=== PATIENT | male | born 1980 | race Caucasian/White ===

== ENCOUNTER 2019-07-30 15:28 | Inpatient (IN) ==
[2019-07-30] MEDS ORDERED: cefTRIAXone 1,000 MG in Water for inj. (sterile) 10 ML IVP ONE (18:20)
[2019-07-30 19:05] LABS: Basophils % 0.4 %; Eosinophils # 0.4 K/mcL (0.0-0.6); Eosinophils % 5.8 %; Hematocrit 40.8 % (37.5-50.1); Hemoglobin 14.5 g/dL (12.9-16.9); Immature Granulocytes % 0.4 % (0-4); Lymphocytes # 2.4 K/mcL (0.6-4.6); Lymphocytes % 34.3 %; Mean Corpuscular HGB Conc 35.5 g/dL (31.6-35.5); Mean Corpuscular Hemoglobin 30.7 pg (28.0-33.3); Mean Corpuscular Volume 86.4 fL (83.0-100.0); Mean Platelet Volume 10.2 fL (9.4-12.4); Monocytes # 0.6 K/mcL (0.0-1.3); Monocytes % 8.8 %; Neutrophils # 3.5 K/mcL (1.6-8.9); Platelet Count 267 K/mcL (140-400); Red Blood Count 4.72 M/mcL (4.19-5.50); Red Cell Distribution Width 13.3 % (11.5-14.5); Segmented Neutrophils % 50.3 %; White Blood Count 6.9 K/mcL (4.3-11.1)
[2019-07-30 19:10] LABS: BUN/Creatinine Ratio 18 (6-26); Blood Urea Nitrogen 17 mg/dL (6-20); Calcium 8.9 mg/dL (8.6-10.3); Carbon Dioxide 27 mEq/L (23-29); Chloride 105 mEq/L (98-107); Glucose 87 mg/dL (70-105); Osmolality,Calculated 285 (280-300); Potassium 4.3 mEq/L (3.5-5.1); Sodium 137 mEq/L (136-145); eGFR For African Americans > 60 (> 60); eGFR For Non-African Americans > 60 (> 60)
--- NOTE | 2019-07-30 19:55 | Emergency Department Note ---
Disposition Clinical Impression: Wound of left leg Qualifiers: Encounter type: initial encounter Qualified Code(s): S81.802A - Unspecified open wound, left lower leg, initial encounter Disposition: Admitted As Inpatient Time of Disposition: 20:14 Wound/Laceration HPI - General Chief Complaint: ED Wound/Laceration Stated Complaint: "infection in left leg" Time Seen by Provider: 07/30/19 18:02 Source: patient Mode of arrival: ambulatory Limitations: no limitations Nursing Notes Reviewed: Yes Vital Signs Reviewed: Yes - History of Present Illness HPI Narrative: 39M with no significant PMHx presents to the emergency department from wound care. Patient states that he cut his left leg several weeks ago and had it sutured the same day. The wound ended up getting infected and he has been seen wound care for it ever since. He had a wound VAC ordered and is scheduled to have a placed today at wound care but they sent him here as they said his wound looked like it was getting worse. Patient states he has been taking outpatient antibiotics and it looks the same to him. Patient denies fever, chills, chest pain, shortness breath, abdominal pain, nausea and vomiting. - Related Data Home Medications Medication Instructions Recorded Confirmed Ibuprofen 800 mg PO Q8H PRN 07/12/19 07/30/19 Previous Rx's Medication Instructions Recorded Acetaminophen [Tylenol] 500 mg PO Q6HR #30 tablet 07/16/19 Amoxicillin/Clavulanate [Augmentin] 875 mg PO BIDWM #20 tablet 07/16/19 Allergies Allergy/AdvReac Type Severity Reaction Status Date / Time No Known Allergies Allergy Verified 07/30/19 15:43 All systems ED: reviewed and negative except as stated. Review of Systems: As Per HPI Constitutional: Denies: fever, chills, weakness Cardiovascular: Denies: chest pain, palpitations, dyspnea on exertion Respiratory: Denies: cough, dyspnea, wheezes Gastrointestinal: Denies: abdominal pain, nausea, vomiting, diarrhea Musculoskeletal: Reports: other (left leg infection). Denies: back pain, neck pain Neurological: Denies: headache Endocrine: Denies: fatigue Past Medical History - Past Medical History Attestation: Yes The following information was validated with the patient. Source: patient Medical history: Reports: no medical history Psychiatric history: Reports: anxiety, ADHD, depression - Social History Smoking Status: Current every day smoker Smokeless Tobacco Status: No Alcohol use: Reports: none Drug use: Reports: none Physical Exam - General Limitations: no limitations General appearance: alert, in no apparent distress - Head Head exam: atraumatic, normocephalic - Eye Eye exam: Present: normal appearance, EOMI - Chest Chest inspection: Present: normal inspection. Absent: tenderness, rash - Respiratory Respiratory exam: Present: normal lung sounds bilaterally. Absent: wheezes - Cardiovascular Cardiovascular exam: Present: regular rate, normal rhythm - Abdominal Exam Abdominal exam: Present: soft, Non-Tender. Absent: distention, guarding, rebound, rigidity - Extremities Exam Extremities exam: Present: tenderness, other (5 x 7 cm wound on the left lower show any with surrounding cellulitis. Secondary circular wound distal to this wound with serous drainage.) - Neurological Exam Neurological exam: Present: alert, oriented X3 - Psychiatric Psychiatric exam: Present: normal affect, normal mood - Skin Skin exam: Present: warm, dry Course Vital Signs Temperature 98.1 F 07/30/19 15:40 Pulse Rate 87 07/30/19 15:40 Respiratory Rate 16 07/30/19 15:40 Blood Pressure 143/92 07/30/19 15:40 O2 Sat by Pulse Oximetry 98 07/30/19 15:40 Temperature 98.1 F 07/30/19 15:40 Pulse Rate 87 07/30/19 15:40 Respiratory Rate 16 07/30/19 15:40 Blood Pressure 143/92 07/30/19 15:40 O2 Sat by Pulse Oximetry 98 07/30/19 15:40 Oxygen Delivery Oxygen Delivery Room Air Wound/Laceration - [facility] Narrative Medical decision making narrative: Patient presents from wound care with concerns for worsening infection overall receiving outpatient antibiotics and seen wound care. We will obtain basic labs and a culture from the wound as well as blood cultures and plan on admission for IV antibiotics and possible debridement of the wound. 1919 - point of care ultrasound was obtained of the left lower extremity which showed a superficial collection of fluid in between the 2 wounds. 1956 - patient's labs are back and within normal limits. Rocephin has been started. Hospitalist been paged for admission. 2013 - patient has been accepted to the hospital by Dr. Brigida panchal the requests of a CRP, procalcitonin and XR of the LLE. - Medical Records Medical records reviewed: Yes I reviewed the patient's medical records. - Lab Data Lab results reviewed: Yes I reviewed the patient's lab results. Result diagrams: 07/30/19 18:36 07/30/19 18:36 Lab Results 07/30/19 07/30/19 07/30/19 Range/Units 18:36 18:36 18:36 WBC 6.9 (4.3-11.1) K/mcL RBC 4.72 (4.19-5.50) M/mcL Hgb 14.5 (12.9-16.9) g/dL Hct 40.8 (37.5-50.1) % MCV 86.4 (83.0-100.0) fL MCH 30.7 (28.0-33.3) pg MCHC 35.5 (31.6-35.5) g/dL RDW 13.3 (11.5-14.5) % Plt Count 267 (140-400) K/mcL MPV 10.2 (9.4-12.4) fL Immature Gran % 0.4 (0-4) % Seg Neutrophils % 50.3 % Lymphocytes % 34.3 % Monocytes % 8.8 % Eosinophils % 5.8 % Basophils % 0.4 % Neutrophils # 3.5 (1.6-8.9) K/mcL Lymphocytes # 2.4 (0.6-4.6) K/mcL Monocytes # 0.6 (0.0-1.3) K/mcL Eosinophils # 0.4 (0.0-0.6) K/mcL Basophils # 0.0 (0.0-0.2) K/mcL ESR 13 H (0-10) mm/hr Sodium 137 (136-145) mEq/L Potassium 4.3 (3.5-5.1) mEq/L Chloride 105 (98-107) mEq/L Carbon Dioxide 27 (23-29) mEq/L BUN 17 (6-20) mg/dL Creatinine 0.95 (0.70-1.30) mg/dL Est GFR ( Amer) > 60 (> 60) Est GFR (Non-Af Amer) > 60 (> 60) BUN/Creatinine Ratio 18 (6-26) Glucose 87 (70-105) mg/dL Calculated Osmolality 285 (280-300) Calcium 8.9 (8.6-10.3) mg/dL Attestation Statement - Attestation Attestation: I have seen this patient with the resident physician, I have personally evaluated this patient. I had reviewed the chart and document dictation by the resident physician and aM in agreement with the information documented by the resident physician. Please see documentation by the resident physician for complete chart including past medical history, family medical history, review of systems, current history and physical and laboratory and imaging studies. I was present for all procedures, provided direct supervision for all procedures, was present for the entirety of all procedures and provided direct guidance during the procedures. Please see documentation by the resident physician for any procedures performed. I have reviewed all interpretations of EKGs, and reviewed all EKGs performed on patient's as well. I have also reviewed reports of imaging as provided by radiology. Patient was sent to the emergency department for further evaluation of worsening wound infection. Patient reports that he was hospitalized previously for this, he had had a laceration, as an outpatient that was repaired and then became infected requiring wound management, and IV antibiotics, he has been on oral antibiotics as an outpatient, has been following at the wound clinic and went to get a wound VAC put on today, however did not like the appearance of his wound and sent him to the emergency department. On exam he has definitive evidence for cellulitis of the anterior tibial region, significant wound dehiscence, of the upper portion of his prior laceration, with still some sutures in place in the lower part of the wound, the wound alesha ures approximately 6 x 4 cm, there is some yellow tissue within this, there is no foul odor, some very small areas of blackened tissue along the edges of the wound, no palpable crepitus or lymphangitis. There is anterior tibial soft tissue swelling, and significant erythema with some mild edema of the anterior portion no obvious palpable abscess but with compression of the soft tissue distal to the wound, there is fluid that does compress out of the upper portion although it does not appear purulent. Basic laboratory studies were all within acceptable limits. X-ray showed no evidence of bony abnormality. Sedimentation rate and CRP within acceptable limits. The patient will be started on antibiotics and will be admitted to the hospitalist, for further evaluation and management and cons ultation from marketing graphics specialist
[2019-07-30 20:51] LABS: C-Reactive Protein 13 mg/L (Less than 10)
--- NOTE | 2019-07-31 00:20 | Internal Med History&Physical ---
Date of Encounter: 07/31/19 Time of Encounter: 00:14 Internal Medicine - H&P: HPI Chief complaint: left lower leg pain Admitted From: Home Plans for Post Hospital Care: Home History of present illness: Mr. Johnson is a 39 year old male with past medical history of substance abuse, depression, anxiety, daily cigarette smoker presented to the ED from wound care for worsening left lower leg wound. Patient reported 3 weeks ago he has had a medical laceration on his left lower leg with metal that became infected and was admitted to the hospital for cellulitis and received IV antibiotic and then transitioned to oral Augmentin. Patient continues to be on oral Augmentin and followed up with wound care and PCP. Patient on Tuesday was noted to have what appeared like abscess/drainage and had his left lower leg worked on(debridement) with removing eschar with a lot of drainage being out and was given Bactrim. Patient then continued to be on Bactrim continuously and then followed up with wound care on tuesday and was scheduled today for wound vac placement. Today, Prior to placing a wound VAC patient left lower leg lesion appeared to be worsened by sent to the ED for IV antibiotics. Patient reports left lower leg wound worsening drainainge but no pain unless pressed on it hard with no alleviating or exacerbating factor. Patient denied currently being in pain, but admits to progressively worsening excessive drainage of clear serious. Patient denies any fever, chills, nausea, vomiting, chest pain, shortness of breath from developing, diarrhea. Reviewed patient's past medical, social, surgical and family history. CODE STATUS full. Past Med Surg Social Fam HX - Past Medical History Medical history: no medical history Additional medical history: partially deaf Psychiatric history: anxiety, ADHD, depression - Past Surgical History Additional surgical history: hearing aids from bilateral mastoidectomies - Social History Smoking Status: Current every day smoker Smokeless Tobacco Status: No Alcohol use: none Drug use: none - Family History Mother Hx Family Cardiac Disorders: Yes (heart murmur, valve replacement) Hx Family Respiratory Disorders: Yes (COPD) Grandfather Hx Family Cardiac Disorders: Yes (ND, HTN) Hx Family Cancer: Yes (leukemia) Grandmother Living Status: Still Living Hx Family Cardiac Disorders: Yes (HTN) Hx Family Neuromuscular Disorders: Yes Hx Family Neurologic Disorders: Yes (Stroke) Internal Medicine - H&P: Meds Ibuprofen 800 mg PO Q8H PRN 07/12/19 [History] Acetaminophen [Tylenol] 500 mg PO Q6HR #30 tablet 07/16/19 [Rx] Amoxicillin/Clavulanate [Augmentin] 875 mg PO BIDWM #20 tablet 07/16/19 [Rx] Allergy/AdvReac Type Severity Reaction Status Date / Time No Known Allergies Allergy Verified 07/30/19 15:43 All Systems PM: A 10-system review of systems was performed and is negative for pertinent findings except as documented above in the HPI. Review of systems: General: No unintentional weightloss, No fever Head: No headahce, No injury. Ears: No discharge, No earache Eyes: No drainage, No eye pain Mouth and Throat: No new ulcers, No pain Nose and Sinus: No new congestion, No pain, Respiratory: No cough, No sputum production, No dyspnea Cardiovascular: No chest pain, No palpitations. Gastrointestinal: No nausea, No vomiting. No abdominal pain. Genital Tract: No discharge, No pain Urinary Tract: No dysuria, No discharge. MSK: +worsening wound lesion, No new/worsening muscle ache. Endocrine: No cold intolerance, No polyuria Psychological: No suicidal, No homocidal ideation. - Constitutional Vitals: Temp Pulse Resp BP Pulse Ox 98.2 F 87 18 121/83 95 07/30/19 21:34 07/30/19 21:34 07/30/19 21:34 07/30/19 21:34 07/30/19 21:34 Exam: General Appearance: Appearing as age, well-nourished in mild acute distress. Head: Atraumatic normocephalic Skin: Normal texture, normal turgor, warm, dry. Left lower leg 7 cm laceration that is open and partially sutured distally. Clear serious fluid with eschar at the borders and another lesion with eschar distal to the lesion around 3 cm noted. Pulses 2+, no weakness or tenderness to palpation. Erythema marked around the laceration. Eyes: Conjunctivae not pale with no erythema, drainage, or ulcers. Anicteric. Neck: No Lymphadenopathy in the anterior/posterior cervical chain. No thyromegaly, masses or ulcers. Trachea midline. Heart: RRR, no murmurs. Capillary refill 3 seconds Lungs: No accessory muscle usage, lungs clear to auscultation bilaterally, no wheezes or crackles. Extremities: No pitting edema, No clubbing, No cyanosis. Abdomen: Non-distended, normoactive bowel sounds. non-tender to palpation, no hepatomegally. No guarding. Neuro: AOx3 with no new sensory loss or focal deficits. MSK: Strength 5/5 Upper extremity equal bilaterally. Strength 5/5 Lower e xtremity equal bilaterally Internal Med - H&P Results - Labs CBC & Chem 7: 07/31/19 05:01 07/31/19 05:01 Labs: Short CBC 07/30/19 Range/Units 18:36 WBC 6.9 (4.3-11.1) K/mcL Hgb 14.5 (12.9-16.9) g/dL Hct 40.8 (37.5-50.1) % Plt Count 267 (140-400) K/mcL Neutrophils # 3.5 (1.6-8.9) K/mcL BMP 07/30/19 18:36 Sodium 137 Potassium 4.3 Chloride 105 Carbon Dioxide 27 BUN 17 Creatinine 0.95 Glucose 87 Calcium 8.9 - Impressions ITS Impressions Tibia/Fibula X-Ray 07/30/19 21:02 IMPRESSION: No acute osseous abnormality. Large anterolateral soft tissue injury D/ / Faraz Babcock MD / Faraz Babcock MD Interpreting Provider: Faraz Babcock MD - Summary of Assessment and Plan Summary of Assessment and Plan: 1.Left lower extremity cellulitis: Failed outpatient oral Augmentin and Bactrim. Reviewed Micro culture: Enterobacter sensitive to Bactrim resistant to Augmentin. Continue IV ceftriaxone. podiatry and wound consultation 2.History of substance abuse: was mostly for cocaine. Continues to be in remission and follow up outpatient. 3.Cigarette smoking: Nicotine patch ordered. 4.Class 1 obesity: nutrition consult 5.History of anxiety and depression: Denied any homicidal or suicidal. Continue outpatient follow-ups. 6.Elevated ESR, CRP, and a normal pro-calcitonin: X-ray showed no acute process and no fractures. Continue current therapy. DVT prophylaxis: Heparin Disposition: > 2 day stay due to failed outpatient oral antibiotics. - Time Spent With Patient Total time spent is greater than 36 minutes 50% in coordination of care (as documented) at patient's floor/unit and/or counseling patient: Greater than 35 minutes
[2019-07-31] MEDS ORDERED: Ondansetron ODT 4 MG TAB.RAPDIS SL PRN (00:46)
[2019-07-31] MEDS ORDERED: Naloxone 0.4 MG/ML INJ IVP PRN (00:46)
[2019-07-31] MEDS ORDERED: cefTRIAXone 1,000 MG in Water for inj. (sterile) 10 ML IVP ONE (01:00)
[2019-07-31] MEDS: Nicotine 21 MG PATCH.TD24 TD SCH ×2 (01:07→08:25)
[2019-07-31] MEDS: Ringers Solution, Lactated 1,000 ML IVC SCH ×2 (01:09→11:46)
[2019-07-31 05:19] LABS: Basophils % 0.6 %; Eosinophils # 0.4 K/mcL (0.0-0.6); Eosinophils % 5.4 %; Hematocrit 40.4 % (37.5-50.1); Immature Granulocytes % 0.4 % (0-4); Lymphocytes # 1.9 K/mcL (0.6-4.6); Lymphocytes % 27.5 %; Mean Corpuscular HGB Conc 34.7 g/dL (31.6-35.5); Mean Corpuscular Hemoglobin 30.2 pg (28.0-33.3); Mean Corpuscular Volume 87.3 fL (83.0-100.0); Monocytes # 0.7 K/mcL (0.0-1.3); Monocytes % 9.5 %; Neutrophils # 3.9 K/mcL (1.6-8.9); Platelet Count 252 K/mcL (140-400); Red Blood Count 4.63 M/mcL (4.19-5.50); Red Cell Distribution Width 13.3 % (11.5-14.5); Segmented Neutrophils % 56.6 %; White Blood Count 6.8 K/mcL (4.3-11.1)
[2019-07-31 05:24] LABS: Prothrombin Time 10.9 Seconds (9.4-12.1)
[2019-07-31 05:39] LABS: Alanine Aminotransferase 32 Units/L (7-52); Albumin 3.5 g/dL (3.5-5.7); Albumin/Globulin Ratio 1.3 (1.1-2.2); Alkaline Phosphatase 60 Units/L (34-104); Aspartate Amino Transferase 13 Units/L (13-39); BUN/Creatinine Ratio 19 (6-26); Bilirubin,Total 0.3 mg/dL (0.3-1.0); Blood Urea Nitrogen 16 mg/dL (6-20); Calcium 8.7 mg/dL (8.6-10.3); Carbon Dioxide 25 mEq/L (23-29); Chloride 108 mEq/L (98-107); Globulin 2.7 g/dL (2.4-3.5); Glucose 106 mg/dL (70-105); Osmolality,Calculated 292 (280-300); Phosphorous 3.7 mg/dL (2.7-4.5); Potassium 4.2 mEq/L (3.5-5.1); Sodium 140 mEq/L (136-145); Total Protein 6.2 g/dL (6.4-8.9); eGFR For African Americans > 60 (> 60); eGFR For Non-African Americans > 60 (> 60)
[2019-07-31] MEDS: *HR* Heparin 5,000 UNIT/ML VIAL SQ SCH ×3 (06:19→21:24)
--- NOTE | 2019-07-31 07:40 | Internal Med Progress Note ---
<Cassie Hay Lu - Last Filed: 07/31/19 19:40> Hospitalist Progress Note - Encounter Date of Encounter: 07/31/19 Time of Encounter: 10:38 - Subjective Interval History: Jose Johnson is a 39-year-old male with past medical history of substance abuse, depression, anxiety, and cigarette smoker presenting for wound care from [facility] left lower leg wound. 3 weeks ago, he had a laceration on left lower leg with metal that became infected. He was treated at this hospital for cellulitis and received IV antibiotic which was transitioned to oral Augmentin. He is still on oral Augmentin and has been followed by wound care and his PCP. Patient is currently on ceftriaxone. Podiatry, wound care, and ID have been consulted. This morning he reports that he feels fine. He voiced a concern that wound culture did not gather a specimen from the 11 cm long tunnel which is associated with visible wound. He reports that if he squeezes his leg, yellow fluid has been coming out. He has been changing packing daily. - Exam Vitals: Temp Pulse Resp BP Pulse Ox 97.8 F 90 16 120/82 95 07/31/19 07:10 07/31/19 07:10 07/31/19 07:10 07/31/19 07:10 07/31/19 07:10 Exam: GENERAL: awake, conversant. In no acute distress. EYES: anicteric, clear sclerae, pupils equal and reactive to light bilaterally HENT: atraumatic, normocephalic. Moist mucosa NECK: normal carotid pulses, supple CV: regular rate and rhythm. Normal S1 and S2. No murmurs, clicks, or gallops RESPIRATORY: clear to auscultation bilaterally. No wheezes, rhonchi, or rales. ABDOMEN: soft, nontender, nondistended. Normal bowel sounds EXTREMITIES: no obvious edema. Peripheral pulses 2+/4 bilaterally. Capillary refill <2 s. Clean, sterile dressings are present on the left calf. Skin above and below dressings is cool and non-erythematous. SKIN: warm, dry. Several tattoos present. - Assessment and Plan (1) Wound of left leg Current Visit: Yes Status: Acute Assessment and Plan: Patient has failed outpatient oral Augmentin and Bactrim. Wound culture from the previous day showed Enterobacter cloacae which was sensitive to Bactrim but resistant to Augmentin. Tray showed no osseous injury but large anterolateral soft tissue injury with no foreign bodies. Wound culture preliminary results showed no white blood cells or bacteria present. Continue IV ceftriaxone Consult to infectious disease. We will await recommendations from infectious disease service. Podiatry plans I&D tomorrow with Dr. Askew MRI left lower extremity with and without contrast has been ordered (2) Current nicotine use Current Visit: No Status: Acute Assessment and Plan: Patient is currently on 21 mg nicotine patch. He reports he is still experiencing cravings. (3) History of cocaine use Current Visit: No Status: Chronic Assessment and Plan: She continues to be in remission and will follow up outpatient. - Time Spent with Patient Total time spent is greater than 50% in coordination of care (as documented) at patient's floor/unit and/or counseling patient: Internal Medicine: Result - Labs CBC & Chem 7: 07/31/19 05:01 07/31/19 05:01 Labs: Short CBC 07/30/19 07/31/19 Range/Units 18:36 05:01 WBC 6.9 6.8 (4.3-11.1) K/mcL Hgb 14.5 14.0 (12.9-16.9) g/dL Hct 40.8 40.4 (37.5-50.1) % Plt Count 267 252 (140-400) K/mcL Neutrophils # 3.5 3.9 (1.6-8.9) K/mcL BMP 07/30/19 07/31/19 18:36 05:01 Sodium 137 140 Potassium 4.3 4.2 Chloride 105 108 H Carbon Dioxide 27 25 BUN 17 16 Creatinine 0.95 0.86 Glucose 87 106 H Calcium 8.9 8.7 Liver Function 07/31/19 Range/Units 05:01 Total Bilirubin 0.3 (0.3-1.0) mg/dL AST 13 (13-39) Units/L ALT 32 (7-52) Units/L Alkaline Phosphatase 60 (34-104) Units/L Albumin 3.5 (3.5-5.7) g/dL - ABG Interpretation ABG results: PT/INR, D-dimer PT 10.9 Seconds (9.4-12.1) 07/31/19 05:01 - Impressions Impressions Tibia/Fibula X-Ray 07/30/19 21:02 IMPRESSION: No acute osseous abnormality. Large anterolateral soft tissue injury D/ / Faraz Babcock MD / Faraz Babcock MD Interpreting Provider: Faraz Babcock MD Consult Discharge Plan - Plan Referrals: Ying Monsalve [Primary Care Provider] - <Lanre Queen - Last Filed: 07/31/19 20:39> Hospitalist Progress Note - Encounter Date of Encounter: 07/31/19 Time of Encounter: 09:30 - Exam Vitals: Temp Pulse Resp BP Pulse Ox 98 F 83 16 144/92 98 07/31/19 19:10 07/31/19 19:10 07/31/19 19:10 07/31/19 19:10 07/31/19 19:10 - Time Spent with Patient Total time spent is greater than 50% in coordination of care (as documented) at patient's floor/unit and/or counseling patient: Internal Medicine: Result - Labs CBC & Chem 7: 07/31/19 05:01 07/31/19 05:01 Labs: Short CBC 07/31/19 Range/Units 05:01 WBC 6.8 (4.3-11.1) K/mcL Hgb 14.0 (12.9-16.9) g/dL Hct 40.4 (37.5-50.1) % Plt Count 252 (140-400) K/mcL Neutrophils # 3.9 (1.6-8.9) K/mcL BMP 07/30/19 07/31/19 18:36 05:01 Sodium 137 140 Potassium 4.3 4.2 Chloride 105 108 H Carbon Dioxide 27 25 BUN 17 16 Creatinine 0.95 0.86 Glucose 87 106 H Calcium 8.9 8.7 Liver Function 07/31/19 Range/Units 05:01 Total Bilirubin 0.3 (0.3-1.0) mg/dL AST 13 (13-39) Units/L ALT 32 (7-52) Units/L Alkaline Phosphatase 60 (34-104) Units/L Albumin 3.5 (3.5-5.7) g/dL - ABG Interpretation ABG results: PT/INR, D-dimer PT 10.9 Seconds (9.4-12.1) 07/31/19 05:01 - Impressions Impressions Tibia/Fibula X-Ray 07/30/19 21:02 IMPRESSION: No acute osseous abnormality. Large anterolateral soft tissue injury D/ / Faraz Babcock MD / Faraz Babcock MD Interpreting Provider: Faraz Babcock MD Lower Extremity MRI 07/31/19 14:13 IMPRESSION: 1. 5 x 5 cm wound/laceration in the lateral mid leg soft tissues. 2. Rind of rim enhancing fluid in the superficial soft tissues communicating to the wound concerning for superficial soft tissue abscess. The rind of rim enhancing fluid extends 11 cm distal to the wound and 12 cm proximal to the wound. These correlate for wound drainage. Associated superficial fasciitis subjacent to the collections. 3. No myositis or intramuscular abscess. No osteomyelitis. D/ / 07/31/2019 14:28:38 Hravinder Miranda MD / bcarter Interpreting Provider: Harvinder Miranda MD - Attending Attestation I saw evaluated and examined this patient and reviewed objective data including labs and my medical decision-making was reviewed with the Resident Physician. I agree with the documented findings, disposition and treatment plan as described except to any changes set forth below. We independently had [id number] contact with the patient. ID and podiatry consulted. Will follow recommendations. <Cassie Hay L - Last Filed: 07/31/19 19:40> (1) Wound of left leg Qualifiers: Encounter type: initial encounter Qualified Code(s): S81.802A - Unspecified open wound, left lower leg, initial encounter
[2019-07-31] MEDS ORDERED: Gadolinium Contrast Agent (WT Based) IV PRN (10:20)
--- NOTE | 2019-07-31 10:30 | Podiatry Consult Note ---
Date of Encounter: 07/31/19 Time of Encounter: 09:30 Assessment and Plan (1) Wound of left leg Current visit: Yes Status: Acute Assessment: -Non-healing wound with cellulitis LLE -Undermining and tunneling noted -3/4 PT/DP pulses noted LLE -WBC 6.8, afebrile -ESR 13, CRP 13 -Left lower leg x-ray showed no evidence of acute osseous abnormality. Large anterior lateral soft tissue injury. -Wound culture preliminary -Wound culture 07/23/2019 enterobacter cloacae complex -Blood cultures preliminary, blood cultures from 07/12/2019 showed no growth Plan: -MRI LLE with and without contrast -NPO after midnight, patient may eat today -OR tomorrow with Dr. Askew for I&D -Recommend ID consult for antibiotic recommendations -Will continue to monitor Qualifiers: Encounter type: initial encounter Qualified Code(s): S81.802A - Unspecified open wound, left lower leg, initial encounter History of Present Illness HPI: Mr. Johnson is a 39 year old male who presented to the Emergency Room (ER) yesterday from Wound Care due to cellulitis and non-healing wound left lower extremity. Patient does report a past medical history of anxiety. Patient st ates that on July 07, 2019 he jumped up on a chair and the bottom flipped up and he cut his leg on a cross bar. He was evaluated in the ER that night and sutures were placed to close the wound. He reports 4 days later he hit his leg on something causing wound dehiscence. The next day he went to the ER because he noticed some drainage from the wound and was admitted for 4 days and received IV antibiotics. He states he was released from the hospital on 07/16/2019. On 2018 he reports he went to Urgent Care because the wound was seeping and was referred to Wound Care. He reports he was evaluated in Wound Care on the and had eschar removed from the site. He was told to leave the site open and allow it to heal from the inside out and change his packing daily. He went back to Wound Care yesterday to have a wound vac placed and was sent to the ER for further evaluation. A CBC was obtained and WBC 6.9, ESR 13, CRP 13. X- ray of the left lower extremity showed no evidence of acute osseous abnormality. Large anterior lateral soft tissue injury. Podiatry was consulted for further recommendations. Upon my assessment patient is alert and oriented and no acute distress noted. He is well nourished resting in bed watching tv. He reports minimal pain. Patient denies any chest pain, shortness of breath, or calf pain. He denies any fever, chills, nausea, vomiting, or diarrhea. He has remained afebrile. He denies any alcohol or illicit drug use and reports he smokes. Dressing to LLE intact and no strike through noted Past Med Surg Social Fam HX - Past Medical History Medical history: no medical history Additional medical history: partially deaf Psychiatric history: anxiety, ADHD, depression - Past Surgical History Additional surgical history: hearing aids from bilateral mastoidectomies - Social History Smoking Status: Current every day smoker Smokeless Tobacco Status: No Alcohol use: none Drug use: none - Family History Mother Hx Family Cardiac Disorders: Yes (heart murmur, valve replacement) Hx Family Respiratory Disorders: Yes (COPD) Grandfather Hx Family Cardiac Disorders: Yes ([place], HTN) Hx Family Cancer: Yes (leukemia) Grandmother Living Status: Still Living Hx Family Cardiac Disorders: Yes (HTN) Hx Family Neuromuscular Disorders: Yes Hx Family Neurologic Disorders: Yes (Stroke) Medications and Allergies Ibuprofen 800 mg PO Q8H PRN 07/12/19 [History] Acetaminophen [Tylenol] 500 mg PO Q6HR #30 tablet 07/16/19 [Rx] Amoxicillin/Clavulanate [Augmentin] 875 mg PO BIDWM #20 tablet 07/16/19 [Rx] Allergy/AdvReac Type Severity Reaction Status Date / Time No Known Allergies Allergy Verified 07/30/19 15:43 All Systems Reviewed: The remainder of the systems were reviewed and are negative - Constitutional Additional comments: As per HPI - Cardiovascular Cardiovascular: no chest pain - Respiratory Respiratory: no dyspnea Physical Exam - Constitutional Vitals: Temp Pulse Resp BP Pulse Ox 97.8 F 90 16 120/82 95 07/31/19 07:10 07/31/19 07:10 07/31/19 07:10 07/31/19 07:10 07/31/19 07:10 Exam: Constitutional: Alert and oriented x 3 male. No acute distress noted. Well nourished. Vascular: 3/4 PT/DP pulses LLE, cap refill less than 3 seconds, skin warm from tibia to toes, no pain with calf squeeze Neurological: Normal sensation, normal plantar response Dermatological: Non-healing wound LLE, 8 cm x 5 cm with area of possible phelgmon distal to site. Does not probe to bone. Undermining noted, tunneling noted from wound to open area distal to site, minimal serosang drainage noted. Wound base pink with fibrotic tissue noted and edges necrotic and fibrotic. Erythema noted around wound does not pass demarcation line. Musculoskeletal: 5/5 muscle strength, normal muscle tone Results - Labs Result Diagrams: 07/31/19 05:01 07/31/19 05:01 Labs: Abnormal lab results ESR 13 mm/hr (0-10) H 07/30/19 18:36 Chloride 108 mEq/L (98-107) H 07/31/19 05:01 Glucose 106 mg/dL (70-105) H 07/31/19 05:01 C-Reactive Protein 13 mg/L (Less than 10) H 07/30/19 18:36 Serum Total Protein 6.2 g/dL (6.4-8.9) L 07/31/19 05:01 H & H 07/30/19 07/31/19 Range/Units 18:36 05:01 Hgb 14.5 14.0 (12.9-16.9) g/dL Hct 40.8 40.4 (37.5-50.1) % All other labs normal. Consult Discharge Plan - Plan Referrals: Ying Monsalve [Primary Care Provider] -
--- NOTE | 2019-07-31 12:41 | Infectious Disease Consult ---
Infectious Disease-Consult - Encounter Date/Time Date of Encounter: 07/31/19 Time of Encounter: 12:39 - Data of Consult Patient: new to practice Reason for consult: Large, currently no leg wound with discharge Consult date: 07/31/19 Requesting Physician: Juaquin Allred DO Primary Care Provider: Ying Beck [facility] HPI: Patient is a 39-year-old gentleman who presented to [facility] on 07/30/2019 with infection in the left leg. We are consulted on 07/31/2019 for a tunneling infection and left leg with drainage and antibiotic recommendations. Patient is a 39-year-old gentleman who has a past medical history significant for substance abuse, depression, anxiety, tobacco use who had a fall on 07/07/19 after falling off a metal chair that lacerated his LLE. Patient came to [facility] ED where he underwent suturing of the wound and was given 5 days course of keflex empirically. It's not clear if he received his tetanus shot. On 07/12, patient had another trauma to his leg an it got swollen and red and painful. Patient came to the ED for evaluation and was admitted. Patient had sepsis that time with leukocytosis and tachycardia. No imaging was obtained. Patient had only blood cultures which were negative. Patient was given 5 days of vanc/zosyn and was discharged on Augmentin for 10 more days through 07/26. Patient was also following up with wound care. the wound had a black eschar which was debrided and wound culture grew Enterobacter cloacae R:Augmentin. Patient was given bactrim and was asked to follow up on the day of admission. On the the day of admission, patient was evaluated by wound care and noted for the wound to be worse so patient was sent to the ED for evaluation. Since admission, patient has been afebrile without tachycardia. Labs revealed WBC of 6.9 with normal diff. ESR/CRP 13/13 with normal chemistry. Blood cultures 07/30 NGT. wound culture revealing GNR. MRI of the leg notes : 1. 5 x 5 cm wound/laceration in the lateral mid leg soft tissues. 2. Rind of rim enhancing fluid in the superficial soft tissues communicating to the wound concerning for superficial soft tissue abscess. The rind of rim enhancing fluid extends 11 cm distal to the wound and 12 cm proximal to the wound. These correlate for wound drainage. Associated superficial fasciitis subjacent to the collections. 3. No myositis or intramuscular abscess. No osteomyelitis. Patient was started on vanc/cetriaxone and we were asked to see patient and make further recommendations Currently, patient laying in bed. appears comfortble. no acute distress. ROS unremarkable - ROS Review of Systems: 10 point ROS done, negative other for what's mentioned in the HPI - Results CBC & Chem 7: 08/01/19 00:29 08/01/19 00:29 - Exam Vitals: Temp Pulse Resp BP Pulse Ox 97.6 F 39 14 111/64 92 07/31/19 12:25 07/31/19 12:25 07/31/19 12:25 07/31/19 12:25 07/31/19 12:25 Exam: GENERAL: Laying in bed, appears comfortable. HEAD: Normocephalic atraumatic EYES: PERRLA, EOMI, no conjunctival hemorrhage, sclera anicteric ENT: Mucous membranes moist, no oral thrush NECK: Supple. No meningeal signs. No masses LUNGS: Chest expanding symmetrically. Lungs sounds audible both lung oliva. No wheezing, no rhonchi CV: RRR, S1S2, ABDOMEN: Soft, nontender, nondistended. Bowel sounds audible BACK: No CVA tenderness. Normal inspection. No tenderness over the spine EXTREMITY: Adequate perfusion. No joint effusion. Patient has a 5 cm ulcerated lesion lateral side of the left lower extremity with no drainage. Underlying tissue and fascia is visible. There is also tunneling caudally. There is no active drainage or necrotic tissue. Sutures distal to the stage IV ulcerated lesion are intact. Minimal surrounding erythema. SKIN: Normal color. No rash. NEURO: Awake alert oriented 3. No obvious focal deficit PSYCH: Calm and appropriate. No agitation. Ibuprofen 800 mg PO Q8H PRN 07/12/19 [History] Acetaminophen [Tylenol] 500 mg PO Q6HR #30 tablet 07/16/19 [Rx] Cholecalciferol (D-3) [Vitamin D] 1,000 unit PO DAILY 07/31/19 [History] Sulfamethoxazole/Trimeth DS [Bactrim DS] 1 tab PO BID 07/31/19 [History] Allergy/AdvReac Type Severity Reaction Status Date / Time No Known Allergies Allergy Verified 07/30/19 15:43 - Assessment and Plan (1) Abscess of left leg excluding foot Current Visit: Yes Status: Acute noted on MRI going for I&D in the am causative organism GNR - previously it was Enterobacter cloacae R:Augmentin patient was started on vanc/ceftriaxone SNOMED Code(s): 124120363 (2) Laceration of left leg Current Visit: No Status: Acute Qualifiers: Encounter type: subsequent encounter Qualified Code(s): S81.812D - Laceration without foreign body, left lower leg, subsequent encounter SNOMED Code(s): 910934505 (3) Cellulitis of leg, left Current Visit: No Status: Acute SNOMED Code(s): 996258027 (4) History of cocaine use Current Visit: No Status: Chronic Patient just got out of 100 day program was tested 100 days ago for hepatitis and HIV which was negative SNOMED Code(s): 566387351 (5) Current nicotine use Current Visit: No Status: Acute SNOMED Code(s): 444866373 - Recommendations Recommendations: continue vanc with goal vanc 10 continue ceftriaxone 2 grams IV q24 start flagyl 500 mg po TID please send intra op cultures for routine, anaerobic, AFB and fungal give tetanus shot if hasn't been given had recent HIV/hepatitis checked, no need to repeat monitor labs and for drug toxicity Past Med Surg Social Fam HX - Past Medical History Medical history: no medical history Additional medical history: partially deaf Psychiatric history: anxiety, ADHD, depression - Past Surgical History Additional surgical history: hearing aids from bilateral mastoidectomies - Social History Smoking Status: Current every day smoker Smokeless Tobacco Status: No Alcohol use: none Drug use: none - Family History Mother Hx Family Cardiac Disorders: Yes (heart murmur, valve replacement) Hx Family Respiratory Disorders: Yes (COPD) Grandfather Hx Family Cardiac Disorders: Yes ([place], HTN) Hx Family Cancer: Yes (leukemia) Grandmother Living Status: Still Living Hx Family Cardiac Disorders: Yes (HTN) Hx Family Neuromuscular Disorders: Yes Hx Family Neurologic Disorders: Yes (Stroke) Consult Discharge Plan - Plan Referrals: Ying Monsalve [Primary Care Provider] - 08/08/19 3:15 pm
[2019-07-31] MEDS ORDERED: Ibuprofen 800 MG TABLET PO PRN (17:50)
[2019-08-01] MEDS ORDERED: cefTRIAXone 2,000 MG in Water for inj. (sterile) 20 ML IVP SCH (01:00)
[2019-08-01 01:44] LABS: Basophils % 0.6 %; Eosinophils # 0.5 K/mcL (0.0-0.6); Eosinophils % 6.9 %; Hematocrit 41.2 % (37.5-50.1); Hemoglobin 14.1 g/dL (12.9-16.9); Immature Granulocytes % 0.6 % (0-4); Lymphocytes # 3.1 K/mcL (0.6-4.6); Lymphocytes % 44.8 %; Mean Corpuscular HGB Conc 34.2 g/dL (31.6-35.5); Mean Corpuscular Hemoglobin 30.5 pg (28.0-33.3); Mean Platelet Volume 10.4 fL (9.4-12.4); Monocytes # 0.7 K/mcL (0.0-1.3); Neutrophils # 2.6 K/mcL (1.6-8.9); Platelet Count 263 K/mcL (140-400); Red Blood Count 4.63 M/mcL (4.19-5.50); Red Cell Distribution Width 13.3 % (11.5-14.5); Segmented Neutrophils % 37.1 %
[2019-08-01 02:00] LABS: BUN/Creatinine Ratio 18 (6-26); Blood Urea Nitrogen 19 mg/dL (6-20); Calcium 9.3 mg/dL (8.6-10.3); Carbon Dioxide 28 mEq/L (23-29); Chloride 103 mEq/L (98-107); Glucose 110 mg/dL (70-105); Osmolality,Calculated 291 (280-300); Potassium 3.9 mEq/L (3.5-5.1); Sodium 139 mEq/L (136-145); eGFR For African Americans > 60 (> 60); eGFR For Non-African Americans > 60 (> 60)
--- NOTE | 2019-08-01 04:52 | Anesthesia Evaluation PreOp ---
<YannickMargy Perrin - Last Filed: 08/01/19 04:51> Date of Encounter: 08/01/19 Time of Encounter: 04:51 - Past History Cardiac History: Denies any Significant Hx Pulmonary History: Smoker COOKER SYRUP History: Other (anxiety, depression, ADHD) Other Medical History: Denies Any Significant HX Anesthesia History: No Prior Anesthetic Complications, Past Anesthesia (williams mastoidectomies) Alcohol Use: none Drug use: none Medications and Allergies Ibuprofen 800 mg PO Q8H PRN 07/12/19 [History] Acetaminophen [Tylenol] 500 mg PO Q6HR #30 tablet 07/16/19 [Rx] Cholecalciferol (D-3) [Vitamin D] 1,000 unit PO DAILY 07/31/19 [History] Sulfamethoxazole/Trimeth DS [Bactrim DS] 1 tab PO BID 07/31/19 [History] Allergy/AdvReac Type Severity Reaction Status Date / Time No Known Allergies Allergy Verified 07/30/19 15:43 - Meds/Allergy Pre-op Review Medications Reviewed: Yes Allergies Reviewed: Yes Beta Blockers on Current Med List: No Anesthesia Results - Labs 08/01/19 00:29 08/01/19 00:29 Anesthesia Exam Vital Signs/O2 Sat, Most Current Temp Pulse Resp BP Pulse Ox 98.2 F 85 16 112/68 95 08/01/19 03:18 08/01/19 03:18 08/01/19 03:18 08/01/19 03:18 08/01/19 03:18 Weight: 106kg NPO (# of Hours): MN Anesthesia Assess/Plan ASA Score: 2 Level of consciousness: Cooperative Anesthetic Plan: General Monitoring Plan: Standard Monitors Recovery Plan: PACU <Iliana Estrada - Last Filed: 08/01/19 17:18> Date of Encounter: 08/01/19 - Past History Planned Operation: L-foot I &D Pulmonary History: KATHERYN Dx (probable KATHERYN not yet Dx) COOKER SYRUP History: 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 T&A), (NO FamHx of ) Drug use: cocaine (last use 4 months ago) Anesthesia Results - Labs 08/01/19 00:29 08/01/19 00:29 Anesthesia Exam Height: 5'10" 233# BMI = 33.5 - HEENT Pupil (Motor): Pupils equal, EOMI Mallampati: II (short TM distance) Teeth: Normal Oral Opening: Greater than 3 - COOKER SYRUP LOC: Oriented [place]UP Motor: Normal RUE, Normal LUE, Normal RLE, Normal LLE, Normal Face COOKER [place]UP Sensory: Normal: RUE, LUE, RLE, LLE, Face - Cardiac Rhythm: Regular Murmur: None - Pulmonary Breath Sounds: bilateral Clear Respiratory Effort: Symmetrical Anes Supervising Prov Stmt: Vital Signs Temp Pulse Resp BP Pulse Ox 08/01/19 15:37 97.9 F 76 16 124/78 97 08/01/19 12:10 8.5 F L 74 16 133/85 97 08/01/19 07:16 97.8 F 73 16 125/82 96 08/01/19 03:18 98.2 F 85 16 112/68 95 07/31/19 23:03 97.8 F 80 16 142/82 97 07/31/19 19:10 98 F 83 16 144/92 98 Intake and Output 07/31/19 08/01/19 08/01/19 23:59 07:59 15:59 Intake Total 20 / 1030 1000 / 1000 Output Total 600 / 600 Balance 20 / -150 400 / 400 Intake: IV Fluids 20 / 1030 1000 / 1000 Lactated Ringers 1,000 ML @ 100 1000 / 1000 mls/hr IVC .Q10H [facility] Rx#: [id number] Rocephin 2,000 MG In Water for inj. (sterile) 20 ML @ 600 mls/ hr IVP Q24H [facility] Rx#:[id number] Output: Urine 600 / 600 Other: Meal NPO for Breakfast Weight 106 kg Patient Weight 08/01/19 23:59 Weight 106 kg Impressions Tibia/Fibula X-Ray 07/30/19 21:02 IMPRESSION: No acute osseous abnormality. Large anterolateral soft tissue injury D/ / Faraz Babcock MD / Faraz Babcock MD Interpreting Provider: Faraz Babcock MD Lower Extremity MRI 07/31/19 14:13 IMPRESSION: 1. 5 x 5 cm wound/laceration in the lateral mid leg soft tissues. 2. Rind of rim enhancing fluid in the superficial soft tissues communicating to the wound concerning for superficial soft tissue abscess. The rind of rim enhancing fluid extends 11 cm distal to the wound and 12 cm proximal to the wound. These correlate for wound drainage. Associated superficial fasciitis subjacent to the collections. 3. No myositis or intramuscular abscess. No osteomyelitis. D/ / 07/31/2019 14:28:38 Harvinder Miranda MD / marlene Interpreting Provider: Harvinder Miranda MD
[2019-08-01] MEDS: *HR* Heparin 5,000 UNIT/ML VIAL SQ SCH ×3 (05:10→21:27)
[2019-08-01] MEDS: Nicotine 21 MG PATCH.TD24 TD SCH (08:11)
[2019-08-01] MEDS ORDERED: Cholecalciferol (D-3) 1,000 UNIT (25MCG) TABLET PO SCH (09:00)
--- NOTE | 2019-08-01 10:48 | Infectious Disease Progress No ---
ID Progress Note Date of Encounter: 08/01/19 Time of Encounter: 10:45 - Subjective Subjective: Patient seen and examined. No acute events noted overnight. Patient reports minimal pain in his leg. Denies fevers, chills, or rigors. Denies chest pain, shortness of breath, or cough. Denies nausea, constipation, or diarrhea. Reports a bowel movement this morning. States he has had an episode of vomiting immediately after each time he has received the IV Rocephin. Denies oral thrush or skin rashes. He states he would like something to eat, but is currently nothing by mouth for surgery later today. - Objective CBC & Chem 7: 08/02/19 04:32 08/02/19 04:32 - Exam Vitals: Temp Pulse Resp BP Pulse Ox 97.8 F 73 16 125/82 96 08/01/19 07:16 08/01/19 07:16 08/01/19 07:16 08/01/19 07:16 08/01/19 07:16 Exam: Head: Atraumatic, normal inspection, normocephalic. Eye: EOMI, PERRLA, no scleral icterus noted. ENT: Mucous membranes moist. No odontogenic infection noted. Neck: Normal inspection, no meningismus. Respiratory: Clear to auscultation. No rales, respiratory distress, rhonchi, or wheezes noted. Cardiovascular: Regular rate and rhythm, S1 and S2 audible. No murmurs, rubs, or gallops. GI: Soft, nondistended, normal bowel sounds. Extremities:No joint swelling, pedal edema, or tenderness noted. Left lower extremity dressing clean, dry, and intact. Neurological: Alert, oriented 3, no focal deficits. Psychiatric: normal affect, normal mood. Skin: Dry, intact, warm. Normal color. No rashes. - Assessment and Plan (1) Abscess of left leg excluding foot Current Visit: Yes Status: Acute MRI of the left leg shows a rind of rim-enhancing fluid in the superficial soft tissues communicating to the wound concerning for superficial soft tissue absc ess. The rind of rim-enhancing fluid extends 11 cm distal to the wound and 12 cm proximal to the wound. Associated superficial fasciitis of adjacent to the collections was also noted. Causative organism: Unclear. Wound culture positive for Pseudomonas, the concern for polymicrobial/atypical infection as well. Previous wound culture positive for Enterobacter cloacae. Failed outpatient oral antibiotics (Augmentin and Bactrim). Podiatry consult. Planning operative I&D later today. Currently on vancomycin and Rocephin. SNOMED Code(s): 002621258 (2) Cellulitis of leg, left Current Visit: No Status: Acute SNOMED Code(s): 817188912 (3) Laceration of left leg Current Visit: No Status: Acute Qualifiers: Encounter type: subsequent encounter Qualified Code(s): S81.812D - Laceration without foreign body, left lower leg, subsequent encounter SNOMED Code(s): 196354052 (4) History of cocaine use Current Visit: No Status: Chronic Patient just got out of 100 day program. Was tested 100 days ago for hepatitis and HIV which was negative. SNOMED Code(s): 004208213 (5) Current nicotine use Current Visit: No Status: Acute Nicotine replacement therapy per the primary team. SNOMED Code(s): 105403935 - Recommendations Recommendations: Await intraoperative cultures and findings. Please send cultures for aerobic, anaerobic, AFB, and fungal. Await blood cultures are finalized. Wound care per the podiatry team. Continue vancomycin IV. Pharmacy to dose. Goal trough approximately 15. DIscontinue Rocephin. Start Zosyn 3.375 grams IV Q8H. Duration of treatment depends on the clinical picture. Monitor renal function and for drug toxicity and dose adjust antibiotics. financial services representative to assist with discharge planning. Consult Discharge Plan - Plan Referrals: Ying Monsalve [Primary Care Provider] - 08/08/19 3:15 pm - Attending Attestation I have personally performed a face to face evaluation on this patient. I have reviewed and agree with the care plan. History and Exam by me shows: Assessment and plan: Abscess of the left leg including foot Cellulitis of the left leg History of cocaine use Recommendations Await intraoperative cultures and findings. Please send cultures for aerobic, anaerobic, AFB, and fungal. Await blood cultures are finalized. Wound care per the podiatry team. Continue vancomycin IV. Pharmacy to dose. Goal trough approximately 15. DIscontinue Rocephin. Start Zosyn 3.375 grams IV Q8H. Duration of treatment depends on the clinical picture. Monitor renal function and for drug toxicity and dose adjust antibiotics. financial services representative to assist with discharge planning.
--- NOTE | 2019-08-01 10:51 | Podiatry Progress Note ---
Date of Encounter: 08/01/19 Time of Encounter: 08:40 - Assessment and Plan (1) Wound of left leg Current Visit: Yes Status: Acute Assessment: -Non-healing wound with cellulitis LLE -3/4 PT/DP pulses noted LLE -WBC 7.0, afebrile -ESR 13, CRP 13 -Left lower leg x-ray showed no evidence of acute osseous abnormality. Large anterior lateral soft tissue injury. -Wound culture final for pseudomonas aeruginosa -Wound culture 07/23/2019 enterobacter cloacae complex -Blood cultures preliminary, blood cultures from 07/12/2019 showed no growth -MRI left lower extremity showed evidence of 5 x 5 cm wound/laceration in the lateral leg soft tissue. There is a ring of enhancing fluid in the superficial soft tissue communicating to the wound concerning for superficial soft tissue abscess. No evidence of myositis or intramuscular abscess is noted. No ostem yelitis. Plan: -Continue IV antibiotics per ID recommendations -OR today with Dr. Askew for I&D, remain NPO -Nature of the procedure, risks versus benefits, potential complications, consequences of surgery, and condition discussed. All questions and concerns addressed. Consent signs and placed in chart. -Will continue to monitor. Qualifiers: Qualified Code(s): S81.802A - Unspecified open wound, left lower leg, initial encounter Subjective Interval history: Patient is alert and oriented x 3, no acute distress noted, resting in bed. He denies any chest pain, shortness of breath, or calf pain. He denies any fever, chills, nausea, vomiting, or diarrhea. Patient is NPO and prepared for surgery. Objective - Vital Signs Vital Signs: Vital Signs Temp Pulse Resp BP Pulse Ox 08/01/19 07:16 97.8 F 73 16 125/82 96 08/01/19 03:18 98.2 F 85 16 112/68 95 07/31/19 23:03 97.8 F 80 16 142/82 97 07/31/19 19:10 98 F 83 16 144/92 98 07/31/19 15:34 97.9 F 76 17 126/86 97 07/31/19 12:25 97.6 F 39 14 111/64 92 07/31/19 12:24 98.1 F 89 16 128/84 96 Intake and Output 07/31/19 08/01/19 08/01/19 23:59 07:59 15:59 Intake Total 0 1000 / 1000 Output Total 600 / 600 Balance 20 / -150 400 / 400 Intake: IV Fluids 0 1000 / 1000 Lactated Ringers 1,000 ML @ 100 1000 / 1000 mls/hr IVC .Q10H [facility] Rx#: [id number] Rocephin 2,000 MG In Water for inj. (sterile) 20 ML @ 600 mls/ hr IVP Q24H [facility] Rx#:[id number] Output: Urine 600 / 600 Other: Weight 106 kg Patient Weight 08/01/19 23:59 Weight 106 kg - Exam Exam: Constitutional: Alert and oriented x 3 male. No acute distress noted. Well nourished. Vascular: 3/4 PT/DP pulses LLE, cap refill less than 3 seconds, skin warm from tibia to toes, no pain with calf squeeze Neurological: Normal sensation, normal plantar response Dermatological: Dressing dry and intact LLE Musculoskeletal: 5/5 muscle strength, normal muscle tone - Lab Result Diagrams: 08/01/19 00:29 08/01/19 00:29 Labs: Abnormal lab results ESR 13 mm/hr (0-10) H 07/30/19 18:36 Chloride 108 mEq/L (98-107) H 07/31/19 05:01 Glucose 110 mg/dL (70-105) H 08/01/19 00:29 C-Reactive Protein 13 mg/L (Less than 10) H 07/30/19 18:36 Serum Total Protein 6.2 g/dL (6.4-8.9) L 07/31/19 05:01 Microbiology, Last 48 Hours 07/30/19 18:45 Wound Culture - Final Left Leg Pseudomonas aeruginosa 07/30/19 18:45 Blood Culture - Preliminary Peripheral Venipuncture Culture is incubating and being continuously monitored for growth. Final report to follow. 07/30/19 18:36 Blood Culture - Preliminary Peripheral Venipuncture Culture is incubating and being continuously monitored for growth. Final report to follow. Consult Discharge Plan - Plan Referrals: Ying Monsalve [Primary Care Provider] - 08/08/19 3:15 pm
[2019-08-01] MEDS ORDERED: Piperacillin/Tazobactam 3.375 GM in 0.9 % Sodium Chloride Mini Bag 100 ML IVPB SCH (16:00)
[2019-08-01] MEDS ORDERED: *HR* FentaNYL (PF) 100 MCG/2 ML VIAL ONE (16:43)
[2019-08-01] MEDS ORDERED: *HR* Propofol 200 MG/20 ML VIAL IVP ONE (16:43)
[2019-08-01] MEDS ORDERED: *HR* Midazolam HCl 2 MG/2 ML VIAL ONE (16:43)
[2019-08-01] MEDS ORDERED: Lidocaine 1% 20 ML MDV ONE (16:44)
[2019-08-01] MEDS ORDERED: Dexamethasone 4 MG/ML VIAL ONE (17:23)
[2019-08-01] MEDS ORDERED: Ondansetron 4 MG/2 ML VIAL ONE (17:23)
[2019-08-01] MEDS ORDERED: Vancomycin 1,000 MG, Sodium Chloride IRRigation 1,000 ML IR ONE ×2 (17:30→19:09)
--- NOTE | 2019-08-01 18:13 | Internal Med Progress Note ---
Hospitalist Progress Note - Encounter Date of Encounter: 08/01/19 Time of Encounter: 18:10 - Subjective Interval History: No acute events. Awaiting surgery today. Denies fevers/chills, drainage. - Exam Vitals: Temp Pulse Resp BP Pulse Ox 97.9 F 63 16 136/88 95 08/01/19 15:37 08/01/19 16:48 08/01/19 15:37 08/01/19 16:48 08/01/19 16:48 Exam: GENERAL: NAD, AAO x3, pleasant EYES: anicteric, clear sclerae, pupils equal and reactive to light bilaterally HENT: MMM NECK: normal carotid pulses, supple CV: regular rate and rhythm. Normal S1 and S2. No murmurs, clicks, or gallops RESPIRATORY: clear to auscultation bilaterally. No wheezes, rhonchi, or rales. ABDOMEN: soft, nontender, nondistended. Normal bowel sounds EXTREMITIES: left calf dressing clean/dry/intact. no erythema SKIN: warm, dry - Assessment and Plan (1) Abscess of left leg excluding foot Current Visit: Yes Status: Acute Assessment and Plan: Plan for I&D today, follow-up intra op cultures Antibiotics per ID recommendations. Follow-up blood cultures, NGTD (2) Current nicotine use Current Visit: No Status: Acute (3) DVT prophylaxis Current Visit: No Status: Acute - Time Spent with Patient Total time spent is greater than 50% in coordination of care (as documented) at patient's floor/unit and/or counseling patient: Internal Medicine: Result - Labs CBC & Chem 7: 08/01/19 00:29 08/01/19 00:29 Labs: Short CBC 08/01/19 Range/Units 00:29 WBC 7.0 (4.3-11.1) K/mcL Hgb 14.1 (12.9-16.9) g/dL Hct 41.2 (37.5-50.1) % Plt Count 263 (140-400) K/mcL Neutrophils # 2.6 (1.6-8.9) K/mcL BMP 08/01/19 00:29 Sodium 139 Potassium 3.9 Chloride 103 Carbon Dioxide 28 BUN 19 Creatinine 1.03 Glucose 110 H Calcium 9.3 - ABG Interpretation ABG results: PT/INR, D-dimer PT 10.9 Seconds (9.4-12.1) 07/31/19 05:01 - Impressions Impressions Lower Extremity MRI 07/31/19 14:13 IMPRESSION: 1. 5 x 5 cm wound/laceration in the lateral mid leg soft tissues. 2. Rind of rim enhancing fluid in the superficial soft tissues communicating to the wound concerning for superficial soft tissue abscess. The rind of rim enhancing fluid extends 11 cm distal to the wound and 12 cm proximal to the wound. These correlate for wound drainage. Associated superficial fasciitis subjacent to the collections. 3. No myositis or intramuscular abscess. No osteomyelitis. D/ / 07/31/2019 14:28:38 Harvinder Miranda MD / marlene Interpreting Provider: Harvinder Miranda MD Consult Discharge Plan - Plan Referrals: Ying Monsalve [Primary Care Provider] - 08/08/19 3:15 pm
--- NOTE | 2019-08-01 18:16 | Orthopedic Operative Note ---
Date of procedure: 08/01/19 Pre-op diagnosis: left leg puncture wound, abscess Post-op diagnosis: same Procedure: 08/01/19 18:15 1. Left leg incision and drainage below fascia 08/02/19 06:55 Implants: None Complications: None Anesthesia: GETA, local Surgeon: Rahul Askew Was there an fleet assistant present: No Estimated blood loss (cc): 20 Tourniquet Time (Minutes): 0 Specimen: left leg wound tissue to micro Condition: stable Disposition: floor Procedure in Detail: 08/02/19 06:55 INDICATIONS AND CONSENT Mr. Johnson is a 39 year old male who initially presented with a left leg laceration 1 month ago which was treated with antibiotics and primary closure in the emergency department. He was seen by different provider and wound care due to dehiscence of the wound and has been treated with a wound VAC. He was admitted to the hospital due to concern for worsening infection of the laceration site. MRI showed evidence of abscess extending proximal and distal to the wound. Surgical intervention was warranted to perform a deep incision and drainage of the abscess with debridement of nonviable soft tissue. We discussed the above procedures in detail. This included a discussion on the indications, contraindications, and possible complications including but not limited to: infection, non-healing wound, pain, swelling, bleeding, blood clots, heart complications, nerve injury, tendon or muscle injury, vascular injury, loss of limb, loss of life, and need for further surgery. Given the anatomic location of the laceration and abscess, there is a high risk for foot drop and nerve injury. We also reviewed the expected post operative course, including a discussion on the weightbearing status after this procedure. He related understanding of our discussion regarding this surgery. All questions were answered to his satisfaction, and a proper written informed consent was obtained, signed, and placed in the chart. No guarantees were given, stated or implied, as to the outcome of this procedure. PROCEDURE IN DETAIL The patient was seen in the pre-operative holding area by Anesthesia, where he was consented for General Anesthesia with local block. The patient was then bro ught back to the operative suite and placed on the operating room table in the supine position. A sign-in was performed. General anesthesia was then initiated per Anesthesia protocol. No tourniquet was used for the procedure. Next, the left lower leg was scrubbed, prepped, and draped in the usual aseptic manner. A [place] Time-Out was performed, and all parties in the room agreed. A 15 blade was used to perform the incision and drainage first by excising the nonviable soft tissue at the lateral leg wound and extending the incision distally to the lateral ankle. The incision was carried deep to the level of the peroneal tendon sheaths. There is minimal purulent drainage at the level of the tendons. Nonviable soft tissue at the lateral leg where sharply excised using a 15 blade and rongeur, although the tendons and muscle bellies were left mostly intact. Soft tissue culture was sent to micro from the left leg wound for aerobe, anaerobe, acid fast, and fungal The common peroneal nerve was not visible while performing incision and drainage, but previous injury cannot be ruled out. The wound was irrigated with 3 liters of normal saline using cysto tubing. A retention suture was placed at the midline of the wound using 2-0 Nylon. A dry, sterile dressing was then applied, which consisted of: betadine soaked kerlix packed into the wound, 4x4's, Kerlix fluffs, ABDs, and Kerlix roll with DECLAN wrap. Capillary refill time of the toes on the left foot was also noted to be brisk at this time. A sign-out was performed. The patient tolerated anesthesia and the procedure well, and was transferred to PAC-U with vital signs stable and vascular status intact to the left lower extremity. Needle and sponge counts were correct X 2 at the end of the case. Dr. Rahul Askew was present, scrubbed, and participated in all vital aspects of the procedure. After a brief stay in PAC-U, the patient will be admitted back to the floor for continued monitoring. We will follow up on culture results. Will plan for repeat incision and drainage or wound vac application pending soft tissue quality over the next 24-48 hours.
[2019-08-01] MEDS: *HR* HYDROmorphone 2 MG/ML SYRINGE IVP PRN ×3 (18:34→18:47)
--- NOTE | 2019-08-01 19:08 | Anesthesia Evaluation Post Op ---
Date of Encounter: 08/01/19 Time of Encounter: 19:07 - Vital Signs Vital Signs: Vital Signs/O2 Sat, Most Current Temp Pulse Resp BP Pulse Ox 99.9 F H 75 18 112/84 99 08/01/19 18:47 08/01/19 18:57 08/01/19 18:57 08/01/19 18:57 08/01/19 18:57 - Lungs Lungs: Clear Ascult./Percussion - Airway Airway: Non-obstructed - Cardiovascular Regular Rate - Mental Status Mental Status: Alert & Oriented, Answers Appropriately - Pain Pain Scale: 0 Pain Scale used: Numeric (1 - 10) - Nausea Vomiting Nausea Vomiting: Not Present - Hydration Hydration: Ice chips - Discharge PostOp Status: Discharge Patient to home
[2019-08-01] MEDS ORDERED: Gadolinium Contrast Agent (WT Based) IV PRN (19:09)
[2019-08-01] MEDS ORDERED: Naloxone 0.4 MG/ML INJ IVP PRN (19:09)
[2019-08-01] MEDS ORDERED: Ibuprofen 800 MG TABLET PO PRN (20:00)
[2019-08-01] MEDS ORDERED: Ondansetron ODT 4 MG TAB.RAPDIS SL PRN (20:00)
[2019-08-01] MEDS ORDERED: traMADol 50 MG TABLET PO ONE (22:55)
[2019-08-02] MEDS: Piperacillin/Tazobactam 3.375 GM in 0.9 % Sodium Chloride Mini Bag 100 ML IVPB SCH ×3 (00:21→16:19)
[2019-08-02 05:05] LABS: Basophils % 0.2 %; Hematocrit 38.8 % (37.5-50.1); Hemoglobin 13.7 g/dL (12.9-16.9); Immature Granulocytes % 0.5 % (0-4); Lymphocytes # 0.9 K/mcL (0.6-4.6); Lymphocytes % 13.5 %; Mean Corpuscular HGB Conc 35.3 g/dL (31.6-35.5); Mean Corpuscular Hemoglobin 30.4 pg (28.0-33.3); Mean Corpuscular Volume 86.2 fL (83.0-100.0); Mean Platelet Volume 9.9 fL (9.4-12.4); Monocytes # 0.1 K/mcL (0.0-1.3); Monocytes % 1.5 %; Neutrophils # 5.6 K/mcL (1.6-8.9); Platelet Count 272 K/mcL (140-400); Red Cell Distribution Width 12.9 % (11.5-14.5); Segmented Neutrophils % 84.3 %; White Blood Count 6.6 K/mcL (4.3-11.1)
[2019-08-02 05:24] LABS: BUN/Creatinine Ratio 17 (6-26); Blood Urea Nitrogen 15 mg/dL (6-20); Calcium 8.8 mg/dL (8.6-10.3); Carbon Dioxide 24 mEq/L (23-29); Chloride 101 mEq/L (98-107); Glucose 213 mg/dL (70-105); Osmolality,Calculated 283 (280-300); Potassium 4.3 mEq/L (3.5-5.1); Sodium 133 mEq/L (136-145); eGFR For African Americans > 60 (> 60); eGFR For Non-African Americans > 60 (> 60)
[2019-08-02] MEDS: *HR* Heparin 5,000 UNIT/ML VIAL SQ SCH ×3 (06:11→21:45)
[2019-08-02] MEDS ORDERED: Ketorolac 30 MG/ML VIAL IM PRN (07:55)
[2019-08-02] MEDS: Nicotine 21 MG PATCH.TD24 TD SCH (08:15)
[2019-08-02] MEDS: Cholecalciferol (D-3) 1,000 UNIT (25MCG) TABLET PO SCH (08:16)
[2019-08-02] MEDS ORDERED: Ketorolac 30 MG/ML VIAL IVP PRN (08:25)
[2019-08-02] MEDS ORDERED: Naloxone 0.4 MG/ML INJ IVP PRN ×2 (08:25→12:05)
[2019-08-02] MEDS ORDERED: Acetaminophen 325 MG TABLET PO PRN (08:25)
--- NOTE | 2019-08-02 08:53 | Internal Med Progress Note ---
<Cassie Hay - Last Filed: 08/02/19 17:57> Hospitalist Progress Note - Encounter Date of Encounter: 08/02/19 Time of Encounter: 10:41 - Subjective Interval History: Patient was concerned today regarding pain control. Was reassured that additional pain medication orders have been placed. Patient is feeling well other than pain at site of yesterday's I&D. He was frustrated that nutrition orders from yesterday of high protein diet to assist with healing had not been implemented and he that he cannot go back to [facility]. Additional note regarding high protein diet has been added to dietary order. Per Clinical Case Management, [facility] has agreed that patient can return at any time with wound vac and IV antibiotics with home health 3x/wk. Referral will be sent in AM. - Exam Vitals: Temp Pulse Resp BP Pulse Ox 97.4 F L 67 18 114/66 95 08/02/19 07:33 08/02/19 07:33 08/02/19 07:33 08/02/19 07:33 08/02/19 07:33 Exam: GENERAL: Awake, conversant. Mildly agitated. EYES: Anicteric, clear sclerae. Pupils equal and reactive to light bilaterally. HENT: Atraumatic, normocephalic. Moist mucosa. NECK: Supple, normal carotid pulses. CV: Regular rate and rhythm. Normal S1 and S2. No murmurs, clicks, or gallops. RESPIRATORY: Clear to auscultation bilaterally. No wheezes, rhonchi, or rales. ABDOMEN: Soft, nontender, nondistended. Normal bowel sounds. EXTREMITIES: No edema present. Peripheral pulses 2+/4. Capillary refill <2 sec. surgical dressings on left calf showed sanguinous drainage. SKIN: Warm, dry. Some tattoos present. No rashes, wounds, or lesions other than noted on left lower extremity - Assessment and Plan (1) Wound of left leg Current Visit: Yes Status: Acute Assessment and Plan: Preliminary wound culture from 07/30 grew Pseudomonas which was sensitive to all agents except for imipenem. Currently on vancomycin and Zosyn. Pain is currently being controlled with Tylenol, Motrin, and Toradol. -1 time dose of oxycodone was administered. Podiatry continues to follow. Infectious disease is currently following but believes it is likely patient will need two weeks antibiotic therapy on discharge. -Continue on vancomycin and Zosyn at this time. Samples from I&D yesterday were sent for AFB culture, anaerobic culture, fungal culture; these are still pending. (2) Current nicotine use Current Visit: No Status: Acute Assessment and Plan: Continue on 21 mg and NicoDerm patch. 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 - Time Spent with Patient Total time spent is greater than 50% in coordination of care (as documented) at patient's floor/unit and/or counseling patient: Internal Medicine: Result - Labs CBC & Chem 7: 08/02/19 04:32 08/02/19 04:32 Labs: Short CBC 08/02/19 Range/Units 04:32 WBC 6.6 (4.3-11.1) K/mcL Hgb 13.7 (12.9-16.9) g/dL Hct 38.8 (37.5-50.1) % Plt Count 272 (140-400) K/mcL Neutrophils # 5.6 (1.6-8.9) K/mcL BMP 08/02/19 04:32 Sodium 133 L Potassium 4.3 Chloride 101 Carbon Dioxide 24 BUN 15 Creatinine 0.88 Glucose 213 H Calcium 8.8 - ABG Interpretation ABG results: PT/INR, D-dimer PT 10.9 Seconds (9.4-12.1) 07/31/19 05:01 Consult Discharge Plan - Plan Referrals: Ying Monsalve [Primary Care Provider] - 08/08/19 3:15 pm <Ynes Lyons - Last Filed: 08/02/19 21:00> Hospitalist Progress Note - Encounter Date of Encounter: 08/02/19 - Exam Vitals: Temp Pulse Resp BP Pulse Ox 98.2 F 78 16 144/79 96 08/02/19 19:35 08/02/19 19:35 08/02/19 19:35 08/02/19 19:35 08/02/19 19:35 - Assessment and Plan (1) Abscess of left leg excluding foot Current Visit: Yes Status: Acute (2) Current nicotine use Current Visit: No Status: Acute (3) DVT prophylaxis Current Visit: No Status: Acute - Time Spent with Patient Total time spent is greater than 50% in coordination of care (as documented) at patient's floor/unit and/or counseling patient: Internal Medicine: Result - Labs CBC & Chem 7: 08/02/19 04:32 08/02/19 04:32 Labs: Short CBC 08/02/19 Range/Units 04:32 WBC 6.6 (4.3-11.1) K/mcL Hgb 13.7 (12.9-16.9) g/dL Hct 38.8 (37.5-50.1) % Plt Count 272 (140-400) K/mcL Neutrophils # 5.6 (1.6-8.9) K/mcL BMP 08/02/19 04:32 Sodium 133 L Potassium 4.3 Chloride 101 Carbon Dioxide 24 BUN 15 Creatinine 0.88 Glucose 213 H Calcium 8.8 - ABG Interpretation ABG results: PT/INR, D-dimer PT 10.9 Seconds (9.4-12.1) 07/31/19 05:01 - Attending Attestation I saw evaluated and examined this patient and reviewed objective data including labs and my medical decision-making was reviewed with the Resident Physician. I agree with the documented findings, disposition and treatment plan as described except to any changes set forth below. We independently had [id number] contact with the patient. <Cassie Hay - Last Filed: 08/02/19 17:57> (1) Wound of left leg Qualifiers: Encounter type: initial encounter Qualified Code(s): S81.802A - Unspecified open wound, left lower leg, initial encounter
--- NOTE | 2019-08-02 11:49 | Infectious Disease Progress No ---
ID Progress Note Date of Encounter: 08/02/19 Time of Encounter: 11:47 - Subjective Subjective: Patient seen and examined with Podiatry. Just had wound VAC changed. No acute events noted overnight. Patient reports minimal pain in his leg prior to dressing change, but states pain is now significant. Denies fevers, chills, or rigors. Denies chest pain, shortness of breath, or cough. Denies nausea, constipation, or diarrhea. Reports a bowel movement yesterday. Denies any more vomiting. Denies oral thrush or skin rashes. States his appetite is good. - Objective CBC & Chem 7: 08/03/19 03:17 08/03/19 03:17 - Exam Vitals: Temp Pulse Resp BP Pulse Ox 97.4 F L 67 18 114/66 95 08/02/19 07:33 08/02/19 07:33 08/02/19 07:33 08/02/19 07:33 08/02/19 07:33 Exam: Head: Atraumatic, normal inspection, normocephalic. Eye: EOMI, PERRLA, no scleral icterus noted. ENT: Mucous membranes moist. No odontogenic infection noted. Neck: Normal inspection, no meningismus. Respiratory: Clear to auscultation. No rales, respiratory distress, rhonchi, or wheezes noted. Cardiovascular: Regular rate and rhythm, S1 and S2 audible. No murmurs, rubs, or gallops. GI: Soft, nondistended, normal bowel sounds. Extremities:No joint swelling, pedal edema, or tenderness noted. Left lower extremity wound VAC dressing intact with sponge well-compressed with no drainage in the canister. Mild surrounding erythema noted. Neurological: Alert, oriented 3, no focal deficits. Psychiatric: normal affect, normal mood. Skin: Dry, intact, warm. Normal color. No rashes. - Assessment and Plan (1) Abscess of left leg excluding foot Current Visit: Yes Status: Acute MRI of the left leg shows a rind of rim-enhancing fluid in the superficial soft tissues communicating to the wound concerning for superficial soft tissue abscess. The rind of rim-enhancing fluid extends 11 cm distal to the wound and 12 cm proximal to the wound. Associated superficial fasciitis of adjacent to the collections was also noted. Causative organism: Unclear. Wound culture positive for Pseudomonas, the concern for polymicrobial/atypical infection as well. Previous wound culture positive for Enterobacter cloacae. Failed outpatient oral antibiotics (Augmentin and Bactrim). Podiatry consult. Status post left leg incision and drainage below fascia 08/01/[address] Askew. Intra-op cultures pending. Currently on vancomycin and Zosyn. SNOMED Code(s): 749161435 (2) Cellulitis of leg, left Current Visit: No Status: Acute Location: LLE. Causative organism unclear. Improved. Currently on Vanc and Zosyn. SNOMED Code(s): 310172002 (3) Laceration of left leg Current Visit: No Status: Acute Qualifiers: Encounter type: subsequent encounter Qualified Code(s): S81.812D - Laceration without foreign body, left lower leg, subsequent encounter SNOMED Code(s): 007539584 (4) History of cocaine use Current Visit: No Status: Chronic Patient just got out of 100 day program. Was tested 100 days ago for hepatitis and HIV which was negative. SNOMED Code(s): 330805409 (5) Current nicotine use Current Visit: No Status: Acute Nicotine replacement therapy per the primary team. SNOMED Code(s): 488627515 - Recommendations Recommendations: Await intraoperative cultures. Await blood cultures to finalize. Wound care per the podiatry team. Pain management per the primary team. Continue vancomycin IV. Pharmacy to dose. Goal trough approximately 15. Contiue Zosyn 3.375 grams IV Q8H. Duration of treatment depends on the clinical picture. Monitor renal function and for drug toxicity and dose adjust antibiotics. business services director to assist with discharge planning. Consult Discharge Plan - Plan Additional Instructions: Home Health has been set up through [facility].If you need to contact them please call #[phone] or #[phone]. Referrals: Rahul Askew DPM [Partnered Physician] - 08/06/19 9:45 am (This appointment will be held in the Wound Clinic) Ying Monsalve [Primary Care Provider] - 08/08/19 3:15 pm Emely Santos CNP [Advanced Practice Nurse] - 08/14/19 3:40 pm Prescriptions: Cefepime HCl 2 gm IJ Q12H #28 vial Prescription Printed Nicotine Patch [Nicoderm] 21 mg TD DAILY #30 patch.[email or web address] Prescription Printed Hydrocodone/Acetaminophen [[place] 7.5-325 Tablet] 1 each PO Q6H 5 Days #20 tablet Prescription Printed - Attending Attestation I have personally performed a face to face evaluation on this patient. I have reviewed and agree with the care plan. History and Exam by me shows: Assessment and plan: 1.Abscess of the left leg including foot 2.Cellulitis of the left leg 3.History of cocaine use Recommendations Await intraoperative cultures. Await blood cultures to finalize. Wound care per the podiatry team. Pain management per the primary team. Continue vancomycin IV. Pharmacy to dose. Goal trough approximately 15. Contiue Zosyn 3.375 grams IV Q8H. Duration of treatment depends on the clinical picture. Monitor renal function and for drug toxicity and dose adjust antibiotics. business services director to assist with discharge planning.
--- NOTE | 2019-08-02 12:00 | Podiatry Progress Note ---
Date of Encounter: 08/02/19 Time of Encounter: 11:00 - Assessment and Plan (1) Wound of left leg Current Visit: Yes Status: Acute Assessment: -Post op day #1, left leg incision and drainage below fascia by Dr. Askew on 08/01/2019 -No complications noted -3/4 PT/DP pulses noted LLE -WBC 6.6, afebrile -ESR 13, CRP 13 -Left lower leg x-ray showed no evidence of acute osseous abnormality. Large anterior lateral soft tissue injury. -Wound culture final for pseudomonas aeruginosa -Wound culture 07/23/2019 enterobacter cloacae complex -Blood cultures preliminary, blood cultures from 07/12/2019 showed no growth -Surgical cultures preliminary -MRI left lower extremity showed evidence of 5 x 5 cm wound/laceration in the lateral leg soft tissue. There is a ring of enhancing fluid in the superficial soft tissue communicating to the wound concerning for superficial soft tissue abscess. No evidence of myositis or intramuscular abscess is noted. No OM. -Receiving IV Vancomycin and Zosyn Plan: -Antibiotic recommendations per ID, recommendations greatly appreciated -Pain management per internal medicine -Social Service to assist with discharge planning, wound vac paperwork has been completed through Wound Care Dressing changed and wound vac applied: Site flushed with sterile normal saline and pat dry. 4x4's placed over intact skin between surgical wounds. Black granulofoam placed in surgical wounds locate d LLE lateral aspect x 2. Secured with wound vac drape. Bridged two sites and covered with wound vac drape. Wound vac started and good seal was noted. Wound vac set to suction at 125 mmHG. No drainage in container at this time. Tubing offloaded from LLE using ABD's, Kerlix, and DECLAN. Plan to change wound vac Tuesday, Tuesday, and . There is some sanguineous drainage noted on 4'x4's under drape, if this causes a problem with keeping a good seal nursing staff may discontinue the wound vac and apply betadine soaked 4x4's to surgical wounds and covered with 4x4's. Kerlix, and DECLAN. Nursing to call for any questions or concerns. Qualifiers: Qualified Code(s): S81.802A - Unspecified open wound, left lower leg, initial encounter Subjective Interval history: Post op day #1, Left leg incision and drainage below fascia by Dr. Askew on 08/01/2019. Patient is alert and oriented, no acute distress noted, and resting in bed. He denies any chest pain, shortness of breath, or calf pain. Patient denies any fever, chills, nausea, vomiting, or diarrhea. He reported minimal pain to LLE until after dressing change with wound vac application and then pain increased. Objective - Vital Signs Vital Signs: Vital Signs Temp Pulse Resp BP Pulse Ox 08/02/19 07:33 97.4 F L 67 18 114/66 95 08/02/19 03:26 98.5 F 77 18 127/79 99 08/01/19 23:33 97.6 F 83 18 113/72 97 08/01/19 21:40 98.2 F 79 18 119/82 08/01/19 20:40 98.1 F 87 18 122/79 08/01/19 20:10 97.9 F 84 16 129/82 08/01/19 19:40 98.3 F 92 18 134/83 92 08/01/19 19:07 98.9 F 80 18 109/82 98 08/01/19 18:57 75 18 112/84 99 08/01/19 18:47 99.9 F H 79 16 118/92 98 08/01/19 18:37 65 16 129/94 96 08/01/19 18:27 77 14 136/90 98 08/01/19 18:17 99.8 F H 77 14 136/96 97 08/01/19 16:48 63 136/88 95 08/01/19 15:37 97.9 F 76 16 124/78 97 08/01/19 12:10 8.5 F L 74 16 133/85 97 Intake and Output 08/01/19 08/02/19 08/02/19 23:59 07:59 15:59 Intake Total 350 / 1350 350 / 350 Output Total 220 / 820 1550 / 1550 Balance 130 / 530 -1200 / -1200 Intake: IV Fluids 350 / 1350 350 / 350 Zosyn 3.375 GM In 0.9 % Sodium 100 / 100 100 / 100 Chloride (Mini-Bag +) 100 ML @ 25 mls/hr IVPB Q8HR [facility] Rx#: [id number] Vancocin 1,500 MG In 0.9 % 250 / 250 250 / 250 Sodium Chloride 250 ML @ 166.67 mls/hr IVPB Q12H [facility] Rx#: [id number] Output: Urine 200 / 800 1550 / 1550 Estimated Blood Loss Other: Weight 106.9 kg Patient Weight 08/02/19 23:59 Weight 106.9 kg - Exam Exam: Constitutional: Alert and oriented x 3 male. No acute distress noted. Well nourished. Vascular: 3/4 PT/DP pulses LLE, cap refill less than 3 seconds, skin warm from tibia to toes, no pain with calf squeeze Neurological: Normal sensation, normal plantar response Dermatological: Surgical wounds x 2 to LLE lateral aspect with moderate amount sanguineous drainage noted. No signs of complications noted. Musculoskeletal: 5/5 muscle strength, normal muscle tone - Lab Result Diagrams: 08/02/19 04:32 08/02/19 04:32 Labs: Abnormal lab results ESR 13 mm/hr (0-10) H 07/30/19 18:36 Sodium 133 mEq/L (136-145) L 08/02/19 04:32 Chloride 108 mEq/L (98-107) H 07/31/19 05:01 Glucose 213 mg/dL (70-105) H 08/02/19 04:32 C-Reactive Protein 13 mg/L (Less than 10) H 07/30/19 18:36 Serum Total Protein 6.2 g/dL (6.4-8.9) L 07/31/19 05:01 Microbiology, Last 48 Hours 08/01/19 18:09 Wound Culture - Preliminary Left Leg 08/01/19 18:09 Anaerobic Culture - Preliminary Left Leg Culture is incubating. 07/30/19 18:45 Wound Culture - Final Left Leg Pseudomonas aeruginosa Consult Discharge Plan - Plan Referrals: Ying Monsalve [Primary Care Provider] - 08/08/19 3:15 pm
[2019-08-03] MEDS: Piperacillin/Tazobactam 3.375 GM in 0.9 % Sodium Chloride Mini Bag 100 ML IVPB SCH ×2 (00:15→08:52)
[2019-08-03 05:17] LABS: Basophils % 0.3 %; Eosinophils # 0.1 K/mcL (0.0-0.6); Eosinophils % 1.1 %; Hematocrit 36.5 % (37.5-50.1); Hemoglobin 12.6 g/dL (12.9-16.9); Immature Granulocytes % 1.1 % (0-4); Lymphocytes # 2.3 K/mcL (0.6-4.6); Lymphocytes % 26.1 %; Mean Corpuscular HGB Conc 34.5 g/dL (31.6-35.5); Mean Corpuscular Hemoglobin 29.9 pg (28.0-33.3); Mean Corpuscular Volume 86.5 fL (83.0-100.0); Mean Platelet Volume 10.4 fL (9.4-12.4); Monocytes # 0.7 K/mcL (0.0-1.3); Monocytes % 8.1 %; Neutrophils # 5.7 K/mcL (1.6-8.9); Platelet Count 264 K/mcL (140-400); Red Blood Count 4.22 M/mcL (4.19-5.50); Red Cell Distribution Width 13.4 % (11.5-14.5); Segmented Neutrophils % 63.3 %; White Blood Count 8.9 K/mcL (4.3-11.1)
[2019-08-03 05:39] LABS: BUN/Creatinine Ratio 24 (6-26); Blood Urea Nitrogen 21 mg/dL (6-20); Calcium 8.6 mg/dL (8.6-10.3); Carbon Dioxide 26 mEq/L (23-29); Chloride 106 mEq/L (98-107); Glucose 121 mg/dL (70-105); Osmolality,Calculated 294 (280-300); Potassium 3.7 mEq/L (3.5-5.1); Sodium 140 mEq/L (136-145); eGFR For African Americans > 60 (> 60); eGFR For Non-African Americans > 60 (> 60)
[2019-08-03] MEDS: *HR* Heparin 5,000 UNIT/ML VIAL SQ SCH ×2 (06:51→12:37)
[2019-08-03 07:29] VITALS: BP 122/83
[2019-08-03] MEDS: Cholecalciferol (D-3) 1,000 UNIT (25MCG) TABLET PO SCH (08:49)
[2019-08-03] MEDS: Nicotine 21 MG PATCH.TD24 TD SCH (08:49)
--- NOTE | 2019-08-03 09:49 | Discharge Summary ---
- NOTES TO OUTPATIENT PROVIDER Notes to Outpatient Provider: Weekly CBC, BUN/Cr, ESR, CRP Orders not resulted at time of discharge: Pending orders 07/30/19 18:36 Culture,Blood [BC] Stat 08/01/19 18:09 AFB Culture, Tissue [TB] Routine AFB Smear [TB] Routine Culture,Anaerobic [RM] Routine Culture,Wound,with Gram Stain [RM] Routine Fungal Culture [MYC] Routine Date of Encounter: 08/03/19 Time of Encounter: 09:46 - Discharge Diagnosis (1) Abscess of left leg excluding foot Priority: Primary Status: Acute (2) Current nicotine use Priority: Secondary Status: Acute (3) DVT prophylaxis Priority: Secondary Status: Acute Hospital course: Mr. Johnson is a 39 year old male with past medical history of tobacco abuse presented to the ED from wound care for worsening left lower leg wound. Patient reported 3 weeks ago he has had a medical laceration on his left lower leg with metal that became infected and was admitted to the hospital for cellulitis and received IV antibiotic and then transitioned to oral Augmentin. Patient continues to be on oral Augmentin and followed up with wound care and PCP. Patient on Tuesday was noted to have what appeared like abscess/drainage and had his left lower leg worked on (debridement) with removing eschar with a lot of drainage being out and was given Bactrim. Patient then continued to be on Bactrim continuously and then followed up with wound care on Tuesday and was scheduled today for wound vac placement. Today, Prior to placing a wound VAC patient left lower leg lesion appeared to be worsened by sent to the ED for IV antibiotics. Patient denied currently being in pain, but admits to progressively worsening excessive drainage of clear serious. Podiatry and Infectious Disease were consulted. He had MRI done that was negative for OM but showed abscess. He underwent I&D on 08/01/19, tolerated procedure well. Wound culture on admission resulted positive for Pseudomonas that was resistant to Imipenem. He was discharged home on Cefepime for 2 weeks and likely Levaquin afterwords. - Time Spent with Patient Total time spent providing and/or coordinating discharge services: - Discharge Medications Prescriptions: New Nicotine Patch [Nicoderm] 21 mg TD DAILY #30 [email or web address] Continued Ibuprofen 800 mg PO Q8H PRN PRN Reason: Pain Acetaminophen [Tylenol] 500 mg PO Q6HR #30 tablet Cholecalciferol (D-3) [Vitamin D] 1,000 unit PO DAILY Discontinued Sulfamethoxazole/Trimeth DS [Bactrim DS] 1 tab PO BID Home Medications: Ibuprofen 800 mg PO Q8H PRN 07/12/19 [History] Acetaminophen [Tylenol] 500 mg PO Q6HR #30 tablet 07/16/19 [Rx] Cholecalciferol (D-3) [Vitamin D] 1,000 unit PO DAILY 07/31/19 [History] Cefepime HCl 2 gm IJ Q12H #28 vial 08/03/19 [Rx] Nicotine Patch [Nicoderm] 21 mg TD DAILY #30 patch.[email or web address] 08/03/19 [Rx] Allergies/Adverse Reactions: Allergy/AdvReac Type Severity Reaction Status Date / Time No Known Allergies Allergy Verified 07/30/19 15:43 Date of admission: 07/31/19 00:46 Primary care physician: Ying Monsalve Consults: 07/30/19 20:09 Consult to Wound Care [CONS] Stat Reason for Consult: left leg wound Call Completed: No 07/31/19 00:49 Consult to Nutrition [CONS] Routine Comment: Consulting Provider: NUTRITION Reason for Dietary Consult: Other Other:: obesity 07/31/19 06:00 Consult to Podiatry [CONS] Routine Consulting Provider: Podiatry [facility] Reason for Consult: worsening left leg cellulitis. Call Completed: No Consult to Wound Care [CONS] Routine Reason for Consult: Left leg cellultitis worsened. Call Completed: No 07/31/19 11:48 Consult to Infectious Diseases [CONS] Routine Consulting Provider: Infectious Disease [place] Reason for Consult: large, tunneling leg wound with discharge. Call Completed: No Discharging clinician: Ynes Lyons - Constitutional Vitals: Temp Pulse Resp BP Pulse Ox 97.6 F 66 16 122/83 98 08/03/19 07:28 08/03/19 07:28 08/03/19 07:28 08/03/19 07:28 08/03/19 07:28 Exam: GENERAL: Awake, conversant. Mildly agitated. EYES: Anicteric, clear sclerae. Pupils equal and reactive to light bilaterally. HENT: Atraumatic, normocephalic. Moist mucosa. NECK: Supple, normal carotid pulses. CV: Regular rate and rhythm. Normal S1 and S2. No murmurs, clicks, or gallops. RESPIRATORY: Clear to auscultation bilaterally. No wheezes, rhonchi, or rales. ABDOMEN: Soft, nontender, nondistended. Normal bowel sounds. EXTREMITIES: No edema present. Peripheral pulses 2+/4. Capillary refill <2 sec. surgical dressings on left calf showed sanguinous drainage. SKIN: Warm, dry. Some tattoos present. No rashes, wounds, or lesions other shira n noted on left lower extremity - Patient Status Disposition: Home Health Service Condition: Good Functional capacity at discharge: independent ambulation Overall status at discharge: patient is progressing back to baseline - Discharge Instructions Follow Up With: Ying Monsalve [Primary Care Provider] - 08/08/19 3:15 pm - Diet and Activity Activity: increase activity as tolerated Diet: advance to your usual diet
--- NOTE | 2019-08-03 09:58 | Physician Discharge Referral ---
Home Health/Hosp Referral Info Transfer to: Home Health Provider in Charge Post Discharge: PCP - Diagnosis (1) Abscess of left leg excluding foot Priority: Primary Status: Acute (2) Current nicotine use Priority: Secondary Status: Acute (3) DVT prophylaxis Priority: Secondary Status: Acute - Respiratory Orders Smoking Cessation: Smoking cessation has been advised. For more information, call the [place] Tobacco Quit Line at 7-280-YNBU-NOW. - Diet/Nutrition Diet/Nutrition Orders: Regular - Services Needed Following services are medically necessary services: Nursing, Home Infusion Home Care Orders: Wound Vac care setup - Transfer Medications Prescriptions: Cefepime HCl 2 gm IJ Q12H #28 vial Prescription Printed Nicotine Patch [Nicoderm] 21 mg TD DAILY #30 patch.[email or web address] Prescription Printed Home Medications: Ibuprofen 800 mg PO Q8H PRN 07/12/19 [History] Acetaminophen [Tylenol] 500 mg PO Q6HR #30 tablet 07/16/19 [Rx] Cholecalciferol (D-3) [Vitamin D] 1,000 unit PO DAILY 07/31/19 [History] Cefepime HCl 2 gm IJ Q12H #28 vial 08/03/19 [Rx] Nicotine Patch [Nicoderm] 21 mg TD DAILY #30 patch.td24 08/03/19 [Rx] Allergies/Adverse Reactions: Allergy/AdvReac Type Severity Reaction Status Date / Time No Known Allergies Allergy Verified 07/30/19 15:43 Certification: Further, I certify that my clinical findings support that this patient is homebound (i.e. absences from home require considerable and taxing effort and are for medical reasons or [employer] or infrequently or short duration when for other reasons) because: Homebound Reason: Post-surgery restriction and or conditions limit ability to leave home Attestation: My signature below is to certify that this patient is under my care and that I, or nurse practitioner, or a physician's dental chairside assistant working with me, has a [id number] encounter with this patient.
[2019-08-03] MEDS ORDERED: Cefepime HCl 2,000 MG in Water for inj. (sterile) 20 ML IVP SCH (10:40)
[2019-08-03] MEDS ORDERED: Cefepime HCl 2,000 MG in Water for inj. (sterile) 20 ML IVPB SCH (10:42)
--- NOTE | 2019-08-03 11:12 | Infectious Disease Progress No ---
ID Progress Note Date of Encounter: 08/03/19 Time of Encounter: 11:06 - Subjective Subjective: Patient seen and examined. No acute events noted overnight. Patient reports minimal pain in his leg at this time. Denies fevers, chills, or rigors. Denies chest pain, shortness of breath, or cough. Denies nausea, constipation, or diarrhea. Reports a bowel movement yesterday. Denies any more vomiting. Denies oral thrush or skin rashes. States his appetite is good. States he wants to go home. - Objective CBC & Chem 7: 08/03/19 03:17 08/03/19 03:17 - Exam Vitals: Temp Pulse Resp BP Pulse Ox 97.6 F 66 16 122/83 98 08/03/19 07:28 08/03/19 07:28 08/03/19 07:28 08/03/19 07:28 08/03/19 07:28 Exam: Head: Atraumatic, normal inspection, normocephalic. Eye: EOMI, PERRLA, no scleral icterus noted. ENT: Mucous membranes moist. No odontogenic infection noted. Neck: Normal inspection, no meningismus. Respiratory: Clear to auscultation. No rales, respiratory distress, rhonchi, or wheezes noted. Cardiovascular: Regular rate and rhythm, S1 and S2 audible. No murmurs, rubs, or gallops. GI: Soft, nondistended, normal bowel sounds. Extremities:No joint swelling, pedal edema, or tenderness noted. Left lower extremity wound VAC dressing intact with sponge well-compressed with small amount of serosanguinous drainage in the canister. Mild surrounding erythema noted. Neurological: Alert, oriented 3, no focal deficits. Psychiatric: normal affect, normal mood. Skin: Dry, intact, warm. Normal color. No rashes. - Assessment and Plan (1) Abscess of left leg excluding foot Status: Acute MRI of the left leg shows a rind of rim-enhancing fluid in the superficial soft tissues communicating to the wound concerning for superficial soft tissue abscess. The rind of rim-enhancing fluid extends 11 cm distal to the wound and 12 cm proximal to the wound. Associated superficial fasciitis of adjacent to the collections was also noted. Causative organism: Unclear. Wound culture positive for Pseudomonas, the concern for polymicrobial/atypical infection as well. Previous wound culture positive for Enterobacter cloacae. Failed outpatient oral antibiotics (Augmentin and Bactrim). Podiatry consult. Status post left leg incision and drainage below fascia 08/01/[address] Askew. Intra-op cultures pending. Currently on vancomycin and Zosyn. SNOMED Code(s): 185956079 (2) Cellulitis of leg, left Status: Acute Location: LLE. Causative organism unclear. Improved. Currently on Vanc and Zosyn. SNOMED Code(s): 703528783 (3) Laceration of left leg Status: Acute Qualifiers: Encounter type: subsequent encounter Qualified Code(s): S81.812D - Laceration without foreign body, left lower leg, subsequent encounter SNOMED Code(s): 236179712 (4) History of cocaine use Status: Chronic Patient just got out of 100 day program. Was tested 100 days ago for hepatitis and HIV which was negative. SNOMED Code(s): 065918043 (5) Current nicotine use Status: Acute Nicotine replacement therapy per the primary team. SNOMED Code(s): 563114275 - Recommendations Recommendations: Await intraoperative cultures to finalize. Await blood cultures to finalize. Wound care per the podiatry team. Pain management per the primary team. Discontinue Vanc. Discontinue Zosyn. Start Cefepime 2 grams IV Q12H. Duration of treatment depends on the clinical picture, but likely 2 weeks post- op (through 08/14/19. Monitor renal function and for drug toxicity and dose adjust antibiotics. business services manager to assist with discharge planning. Consult VAT for EPIV placement. Will need weekly CBC, BUN/Cr, ESR, and CRP. Will need weekly EPIV care per protocol. Follow up with ID 08/14/19 at 1540. Consult Discharge Plan - Plan Additional Instructions: Home Health has been set up through [email or web address].If you need to contact them please call #[phone] or #[phone]. Referrals: Rahul Askew DPM [Partnered Physician] - 08/06/19 9:45 am (This appointment will be held in the Wound Clinic) Ying Monsalve [Primary Care Provider] - 08/08/19 3:15 pm Tom,Emely N, DRY PAN OPERATOR [Advanced Practice Nurse] - 08/14/19 3:40 pm Prescriptions: Cefepime HCl 2 gm IJ Q12H #28 vial Prescription Printed Nicotine Patch [Nicoderm] 21 mg TD DAILY #30 patch.[email or web address] Prescription Printed Hydrocodone/Acetaminophen [Cranberry 7.5-325 Tablet] 1 each PO Q6H 5 Days #20 tablet Prescription Printed - Attending Attestation I have personally performed a face to face evaluation on this patient. I have reviewed and agree with the care plan. History and Exam by me shows: Assessment and plan: 1.Abscess of the left leg including foot; s/p I&D and debridement. intra op cultures + PSEA. 2.Cellulitis of the left leg 3.History of cocaine use Recommendations s/p powerglide placement d/c on cefepime 2 grams IV q12 duration of treatment 2 weeks followed by 2 weeks of oral levaquin f/u with us in clinic in 2 weeks weekly labs
--- NOTE | 2019-08-03 12:08 | Podiatry Progress Note ---
Date of Encounter: 08/03/19 Time of Encounter: 11:05 - Assessment and Plan (1) Wound of left leg Current Visit: Yes Status: Acute Assessment: -Post op day #2, left leg incision and drainage below fascia by Dr. Askew on 08/01/2019 -No complications noted -3/4 PT/DP pulses noted LLE -WBC 8.9, afebrile -ESR 13, CRP 13 -Left lower leg x-ray showed no evidence of acute osseous abnormality. Large anterior lateral soft tissue injury. -Wound culture final for pseudomonas aeruginosa -Wound culture 07/23/2019 enterobacter cloacae complex -Blood cultures preliminary, blood cultures from 07/12/2019 showed no growth -Surgical cultures preliminary -MRI left lower extremity showed evidence of 5 x 5 cm wound/laceration in the lateral leg soft tissue. There is a ring of enhancing fluid in the superficial soft tissue communicating to the wound concerning for superficial soft tissue abscess. No evidence of myositis or intramuscular abscess is noted. No OM. Plan: -May discharge when cultures are final and ID makes final antibiotic recommendations -Pain management per internal medicine -Social Service to assist with discharge planning, wound vac paperwork has been completed through Wound Care -Current wound vac is KCI, needs switched to [employer] due to insurance, if discharges today nursing staff to change wound vac and wound vac changes will switch to Tuesday, Tuesday, Tuesday -Follow up with Dr. Askew in Wound Care next week, please schedule appointment prior to discharge Qualifiers: Encounter type: initial encounter Qualified Code(s): S81.802A - Unspecified open wound, left lower leg, initial encounter Subjective Interval history: Post op day #2, Left leg incision and drainage below fascia by Dr. Askew on 08/01/2019. Patient is alert and oriented, no acute distress noted, up walking to restroom. He denies any chest pain, shortness of breath, or calf pain. Patient denies any fever, chills, nausea, vomiting, or diarrhea. He denies pain at this time, but is requesting a prescription for pain medicine that he can take before wound vac dressing changes. Objective - Vital Signs Vital Signs: Vital Signs Temp Pulse Resp BP Pulse Ox 08/03/19 07:28 97.6 F 66 16 122/83 98 08/03/19 03:43 98.2 F 63 16 136/76 96 08/02/19 23:51 97.8 F 86 16 126/70 93 08/02/19 19:35 98.2 F 78 16 144/79 96 08/02/19 15:51 97.7 F 81 16 152/72 94 08/02/19 12:08 97.5 F L 77 16 132/73 97 Intake and Output 08/02/19 08/03/19 08/03/19 23:59 07:59 15:59 Intake Total 350 / 800 250 / 830 580 / 830 Output Total 1000 / 1000 Balance 350 / -1100 -750 / -170 580 / -170 Intake: IV Fluids 350 / 800 250 / 350 100 / 350 Zosyn 3.375 GM In 0.9 % Sodium 100 / 300 100 / 100 Chloride (Mini-Bag +) 100 ML @ 25 mls/hr IVPB Q8HR JULIA Rx#: [id number] Vancocin 1,500 MG In 0.9 % 250 / 500 250 / 250 Sodium Chloride 250 ML @ 166.67 mls/hr IVPB Q12H JULIA Rx#: [id number] Oral 480 / 480 Output: Urine 1000 / 1000 Other: Meal Breakfast Percent of Meal Consumed 100% - Exam Exam: Constitutional: Alert and oriented x 3 male. No acute distress noted. Well nourished. Vascular: 3/4 PT/DP pulses LLE, cap refill less than 3 seconds, skin warm from tibia to toes, no pain with calf squeeze Neurological: Normal sensation, normal plantar response Dermatological: Dressing to LLE dry and intact and wound vac functioning properl y with good seal and 25 cc of sanguineous drainage noted in container. Musculoskeletal: 5/5 muscle strength, normal muscle tone - Lab Result Diagrams: 08/03/19 03:17 08/03/19 03:17 Labs: Abnormal lab results Hgb 12.6 g/dL (12.9-16.9) L 08/03/19 03:17 Hct 36.5 % (37.5-50.1) L 08/03/19 03:17 ESR 13 mm/hr (0-10) H 07/30/19 18:36 Sodium 133 mEq/L (136-145) L 08/02/19 04:32 Chloride 108 mEq/L (98-107) H 07/31/19 05:01 BUN 21 mg/dL (6-20) H 08/03/19 03:17 Glucose 121 mg/dL (70-105) H 08/03/19 03:17 C-Reactive Protein 13 mg/L (Less than 10) H 07/30/19 18:36 Serum Total Protein 6.2 g/dL (6.4-8.9) L 07/31/19 05:01 Microbiology, Last 48 Hours 08/01/19 18:09 Wound Culture - Preliminary Left Leg Pseudomonas aeruginosa 08/01/19 18:09 Anaerobic Culture - Preliminary Left Leg Culture is incubating. 07/30/19 18:45 Wound Culture - Final Left Leg Pseudomonas aeruginosa Consult Discharge Plan - Plan Additional Instructions: Home Health has been set up through [facility].If you need to contact them please call #[phone] or #[phone]. Referrals: Rahul Askew, MISAM [Partnered Physician] - 08/06/19 9:45 am (This appointment will be held in the Wound Clinic) Ying Monsalve [Primary Care Provider] - 08/08/19 3:15 pm Emely Santos, MARK [Advanced Practice Nurse] - 08/14/19 3:40 pm Prescriptions: Cefepime HCl 2 gm IJ Q12H #28 vial Prescription Printed Nicotine Patch [Nicoderm] 21 mg TD DAILY #30 patch.[email or web address] Prescription Printed
[2019-08-03] MEDS ORDERED: *HR* HYDROcodone/Acet 5/325 mg TABLET PO ONE (14:02)
[2019-08-03] MEDS ORDERED: Aminoglycoside Consult 1 EACH MC ONE (16:25)
== END 2019-08-03 16:26 | disposition home health service (06) | DRG 721 ==
LOC: 3BNU 15:28 → EMEROOARM 15:28 → 3BNU 21:19 → SUATTDRO 07-31 00:46
PROVIDERS: ADMIT Internal Medicine; ATTEND Student in an Organized Health Care Education/Training Program

== ENCOUNTER 2019-08-22 09:52 | Inpatient (IN) ==
[2019-08-22] MEDS ORDERED: *HR* HYDROcodone/Acet 5/325 mg TABLET PO ONE (10:05)
[2019-08-22 10:28] LABS: Basophils % 0.3 %; Eosinophils # 0.3 K/mcL (0.0-0.6); Eosinophils % 3.9 %; Hematocrit 39.7 % (37.5-50.1); Hemoglobin 13.6 g/dL (12.9-16.9); Immature Granulocytes % 0.4 % (0-4); Lymphocytes # 1.6 K/mcL (0.6-4.6); Lymphocytes % 24.1 %; Mean Corpuscular HGB Conc 34.3 g/dL (31.6-35.5); Mean Corpuscular Hemoglobin 30.2 pg (28.0-33.3); Mean Corpuscular Volume 88.2 fL (83.0-100.0); Mean Platelet Volume 10.6 fL (9.4-12.4); Monocytes # 0.8 K/mcL (0.0-1.3); Monocytes % 11.7 %; Platelet Count 153 K/mcL (140-400); Red Cell Distribution Width 13.7 % (11.5-14.5); Segmented Neutrophils % 59.6 %; White Blood Count 6.7 K/mcL (4.3-11.1)
[2019-08-22 10:47] LABS: Alanine Aminotransferase 86 Units/L (7-52); Albumin 3.6 g/dL (3.5-5.7); Albumin/Globulin Ratio 1.3 (1.1-2.2); Alkaline Phosphatase 66 Units/L (34-104); Aspartate Amino Transferase 20 Units/L (13-39); BUN/Creatinine Ratio 26 (6-26); Bilirubin,Total 0.5 mg/dL (0.3-1.0); Blood Urea Nitrogen 22 mg/dL (6-20); C-Reactive Protein 14 mg/L (Less than 10); Calcium 8.7 mg/dL (8.6-10.3); Carbon Dioxide 24 mEq/L (23-29); Chloride 112 mEq/L (98-107); Globulin 2.7 g/dL (2.4-3.5); Glucose 97 mg/dL (70-105); Osmolality,Calculated 293 (280-300); Potassium 3.9 mEq/L (3.5-5.1); Sodium 140 mEq/L (136-145); Total Protein 6.3 g/dL (6.4-8.9); eGFR For African Americans > 60 (> 60); eGFR For Non-African Americans > 60 (> 60)
[2019-08-22] MEDS ORDERED: Ondansetron 4 MG/2 ML VIAL IVP PRN (11:39)
[2019-08-22] MEDS ORDERED: Naloxone 0.4 MG/ML INJ IVP PRN (11:39)
[2019-08-22] MEDS ORDERED: Ibuprofen 400 MG TABLET PO PRN (11:39)
[2019-08-22] MEDS ORDERED: Gadolinium Contrast Agent (WT Based) IV PRN (11:50)
[2019-08-22] MEDS: Cefepime HCl 2,000 MG in Water for inj. (sterile) 20 ML IVP SCH ×3 (13:01→19:51)
[2019-08-22] MEDS ORDERED: Nicotine 2 MG GUM BC PRN (13:24)
[2019-08-22] MEDS: Nicotine 21 MG PATCH.TD24 TD SCH (19:51)
[2019-08-22] MEDS ORDERED: HYDROcodone BIT/Homatropine 5 MG TABLET PO ONE (21:03)
[2019-08-23] MEDS: Cefepime HCl 2,000 MG in Water for inj. (sterile) 20 ML IVP SCH ×3 (04:46→21:45)
[2019-08-23] MEDS: *HR* Enoxaparin 40 MG/0.4 ML SYRINGE SQ SCH (04:48)
[2019-08-23] MEDS: Acetaminophen 325 MG TABLET PO PRN (04:48)
[2019-08-23 05:29] LABS: Hematocrit 40.1 % (37.5-50.1); Hemoglobin 13.9 g/dL (12.9-16.9); Mean Corpuscular HGB Conc 34.7 g/dL (31.6-35.5); Mean Corpuscular Hemoglobin 31.2 pg (28.0-33.3); Mean Corpuscular Volume 89.9 fL (83.0-100.0); Mean Platelet Volume 10.7 fL (9.4-12.4); Platelet Count 160 K/mcL (140-400); Red Blood Count 4.46 M/mcL (4.19-5.50); Red Cell Distribution Width 13.7 % (11.5-14.5); White Blood Count 6.1 K/mcL (4.3-11.1)
[2019-08-23 07:27] LABS: Alanine Aminotransferase 65 Units/L (7-52); Albumin 3.4 g/dL (3.5-5.7); Albumin/Globulin Ratio 1.3 (1.1-2.2); Alkaline Phosphatase 63 Units/L (34-104); Aspartate Amino Transferase 18 Units/L (13-39); BUN/Creatinine Ratio 22 (6-26); Bilirubin,Direct 0.1 mg/dL (0.0-0.2); Bilirubin,Indirect 0.3 mg/dL (0.0-1.2); Bilirubin,Total 0.4 mg/dL (0.3-1.0); Blood Urea Nitrogen 20 mg/dL (6-20); Calcium 8.7 mg/dL (8.6-10.3); Carbon Dioxide 28 mEq/L (23-29); Chloride 106 mEq/L (98-107); Globulin 2.7 g/dL (2.4-3.5); Glucose 94 mg/dL (70-105); Magnesium 1.7 mg/dL (1.6-2.6); Osmolality,Calculated 292 (280-300); Potassium 4.3 mEq/L (3.5-5.1); Sodium 140 mEq/L (136-145); Total Protein 6.1 g/dL (6.4-8.9); eGFR For African Americans > 60 (> 60); eGFR For Non-African Americans > 60 (> 60)
[2019-08-23] MEDS: Nicotine 21 MG PATCH.TD24 TD SCH (08:43)
[2019-08-23] MEDS ORDERED: Naloxone 0.4 MG/ML INJ IVP PRN (10:31)
[2019-08-23] MEDS: *HR* OxyCODONE Immed Rel 5 MG TABLET PO PRN ×3 (11:00→23:41)
[2019-08-23] MEDS ORDERED: Nicotine 21 MG PATCH.TD24 TD SCH (13:24)
[2019-08-23] MEDS: hydrOXYzine pamoate 25 MG CAPSULE PO SCH (21:44)
[2019-08-24 05:21] LABS: BUN/Creatinine Ratio 19 (6-26); Blood Urea Nitrogen 25 mg/dL (6-20); Carbon Dioxide 28 mEq/L (23-29); Chloride 106 mEq/L (98-107); Glucose 98 mg/dL (70-105); Osmolality,Calculated 294 (280-300); Potassium 4.1 mEq/L (3.5-5.1); Sodium 140 mEq/L (136-145); eGFR For African Americans > 60 (> 60); eGFR For Non-African Americans 60 (> 60)
[2019-08-24] MEDS: Cefepime HCl 2,000 MG in Water for inj. (sterile) 20 ML IVP SCH ×3 (05:37→21:00)
[2019-08-24] MEDS: *HR* Enoxaparin 40 MG/0.4 ML SYRINGE SQ SCH (05:38)
[2019-08-24] MEDS: *HR* OxyCODONE Immed Rel 5 MG TABLET PO PRN ×3 (05:38→17:55)
[2019-08-24] MEDS: Nicotine 21 MG PATCH.TD24 TD SCH (08:56)
[2019-08-24] MEDS: Cholecalciferol (D-3) 1,000 UNIT (25MCG) TABLET PO SCH (08:57)
[2019-08-24] MEDS: hydrOXYzine pamoate 25 MG CAPSULE PO SCH ×3 (08:57→21:00)
[2019-08-24] MEDS: 0.9 % Sodium Chloride 1,000 ML IVC SCH ×2 (09:00→20:59)
[2019-08-24] MEDS: *HR* Heparin 5,000 UNIT/ML VIAL SQ SCH (17:55)
[2019-08-24 17:57] LABS: Bilirubin,Urine Negative (Negative); Blood,Urine Negative (Negative); Clarity,Urine Clear (Clear); Color,Urine Yellow (Yellow); Glucose,Urine (UA) Normal (Normal); Ketones,Urine Negative (Negative); Leukocyte Esterase,Urine Negative (Negative); Nitrite,Urine Negative (Negative); PH,Urine 5.5 pH Units (5.0-8.0); Protein,Urine Negative (Neg-Trace); Specific Gravity,Urine 1.015 (1.010-1.025); Urobilinogen,Urine Normal (Normal)
[2019-08-25] MEDS: *HR* OxyCODONE Immed Rel 5 MG TABLET PO PRN ×3 (03:44→17:07)
[2019-08-25] MEDS: *HR* Heparin 5,000 UNIT/ML VIAL SQ SCH ×2 (05:38→17:07)
[2019-08-25] MEDS: Cefepime HCl 2,000 MG in Water for inj. (sterile) 20 ML IVP SCH ×3 (05:38→20:17)
[2019-08-25 06:12] LABS: BUN/Creatinine Ratio 24 (6-26); Blood Urea Nitrogen 21 mg/dL (6-20); Carbon Dioxide 28 mEq/L (23-29); Chloride 106 mEq/L (98-107); Glucose 101 mg/dL (70-105); Osmolality,Calculated 291 (280-300); Potassium 4.2 mEq/L (3.5-5.1); Sodium 139 mEq/L (136-145); eGFR For African Americans > 60 (> 60); eGFR For Non-African Americans > 60 (> 60)
[2019-08-25] MEDS ORDERED: Aminoglycoside Consult 1 EACH MC ONE (08:21)
[2019-08-25] MEDS: Nicotine 21 MG PATCH.TD24 TD SCH (08:46)
[2019-08-25] MEDS: Cholecalciferol (D-3) 1,000 UNIT (25MCG) TABLET PO SCH (08:48)
[2019-08-25] MEDS: hydrOXYzine pamoate 25 MG CAPSULE PO SCH ×3 (08:48→20:16)
[2019-08-25] MEDS: 0.9 % Sodium Chloride 1,000 ML IVC SCH ×2 (10:31→20:16)
[2019-08-25] MEDS: Acetaminophen 325 MG TABLET PO PRN (20:16)
[2019-08-26] MEDS: *HR* OxyCODONE Immed Rel 5 MG TABLET PO PRN ×4 (02:20→23:13)
[2019-08-26] MEDS: Cefepime HCl 2,000 MG in Water for inj. (sterile) 20 ML IVP SCH ×3 (04:26→20:01)
[2019-08-26] MEDS: *HR* Heparin 5,000 UNIT/ML VIAL SQ SCH ×2 (06:12→17:40)
[2019-08-26] MEDS: 0.9 % Sodium Chloride 1,000 ML IVC SCH ×2 (06:14→20:01)
[2019-08-26] MEDS: Nicotine 21 MG PATCH.TD24 TD SCH (08:13)
[2019-08-26] MEDS: hydrOXYzine pamoate 25 MG CAPSULE PO SCH ×3 (08:13→20:01)
[2019-08-26] MEDS: Cholecalciferol (D-3) 1,000 UNIT (25MCG) TABLET PO SCH (08:13)
[2019-08-26] MEDS: *HR* HYDROcodone/Acet 5/325 mg TABLET PO PRN ×2 (11:47→20:01)
[2019-08-26] MEDS: Doxycycline 100 MG in 0.9 % Sodium Chloride Mini Bag 100 ML IVPB SCH ×2 (12:43→23:13)
[2019-08-27] MEDS: 0.9 % Sodium Chloride 1,000 ML IVC SCH ×2 (01:31→05:12)
[2019-08-27 04:44] LABS: Basophils % 0.8 %; Eosinophils # 0.5 K/mcL (0.0-0.6); Eosinophils % 9.5 %; Hematocrit 38.1 % (37.5-50.1); Hemoglobin 12.9 g/dL (12.9-16.9); Immature Granulocytes % 0.6 % (0-4); Lymphocytes # 1.6 K/mcL (0.6-4.6); Lymphocytes % 33.3 %; Mean Corpuscular HGB Conc 33.9 g/dL (31.6-35.5); Mean Corpuscular Hemoglobin 30.4 pg (28.0-33.3); Mean Corpuscular Volume 89.9 fL (83.0-100.0); Mean Platelet Volume 10.1 fL (9.4-12.4); Monocytes # 0.6 K/mcL (0.0-1.3); Monocytes % 12.8 %; Platelet Count 167 K/mcL (140-400); Red Blood Count 4.24 M/mcL (4.19-5.50); Red Cell Distribution Width 13.6 % (11.5-14.5); White Blood Count 4.8 K/mcL (4.3-11.1)
[2019-08-27 05:03] LABS: BUN/Creatinine Ratio 21 (6-26); Blood Urea Nitrogen 21 mg/dL (6-20); Calcium 8.7 mg/dL (8.6-10.3); Carbon Dioxide 25 mEq/L (23-29); Chloride 108 mEq/L (98-107); Glucose 100 mg/dL (70-105); Osmolality,Calculated 293 (280-300); Potassium 4.2 mEq/L (3.5-5.1); Sodium 140 mEq/L (136-145); eGFR For African Americans > 60 (> 60); eGFR For Non-African Americans > 60 (> 60)
[2019-08-27] MEDS: *HR* Heparin 5,000 UNIT/ML VIAL SQ SCH ×2 (05:12→18:57)
[2019-08-27] MEDS: Cefepime HCl 2,000 MG in Water for inj. (sterile) 20 ML IVP SCH ×2 (05:12→17:37)
[2019-08-27] MEDS: *HR* OxyCODONE Immed Rel 5 MG TABLET PO PRN ×3 (05:13→17:38)
[2019-08-27] MEDS: Cholecalciferol (D-3) 1,000 UNIT (25MCG) TABLET PO SCH (10:55)
[2019-08-27] MEDS: hydrOXYzine pamoate 25 MG CAPSULE PO SCH ×3 (10:55→22:23)
[2019-08-27] MEDS: Nicotine 21 MG PATCH.TD24 TD SCH (10:56)
[2019-08-27] MEDS: Doxycycline 100 MG in 0.9 % Sodium Chloride Mini Bag 100 ML IVPB SCH ×2 (10:56→22:23)
[2019-08-27] MEDS: *HR* HYDROcodone/Acet 5/325 mg TABLET PO PRN (23:32)
[2019-08-28] MEDS: Cefepime HCl 2,000 MG in Water for inj. (sterile) 20 ML IVP SCH ×2 (02:27→10:06)
[2019-08-28] MEDS: *HR* HYDROcodone/Acet 5/325 mg TABLET PO PRN (06:51)
[2019-08-28] MEDS: *HR* Heparin 5,000 UNIT/ML VIAL SQ SCH (06:51)
[2019-08-28 07:23] VITALS: BP 114/67
[2019-08-28] MEDS: hydrOXYzine pamoate 25 MG CAPSULE PO SCH (10:05)
[2019-08-28] MEDS: *HR* OxyCODONE Immed Rel 5 MG TABLET PO PRN (10:05)
[2019-08-28] MEDS: Nicotine 21 MG PATCH.TD24 TD SCH (10:06)
[2019-08-28] MEDS: Cholecalciferol (D-3) 1,000 UNIT (25MCG) TABLET PO SCH (10:06)
== END 2019-08-28 11:34 | disposition home or self-care (01) | DRG 383 ==
LOC: EMEROOARM 09:52 → SUATTDRO 11:43 → 3ANU 11:43 → UNDODISIN 08-28 11:33
PROVIDERS: ADMIT Internal Medicine; ATTEND Internal Medicine

== ENCOUNTER 2019-09-11 12:27 | Observation (INO) ==
[2019-09-11 13:30] LABS: Hematocrit 36.7 % (37.5-50.1); Hemoglobin 13.7 g/dL (12.9-16.9); Lymphocytes % 86.8 %; Mean Corpuscular Hemoglobin 30.3 pg (28.0-33.3); Mean Corpuscular Volume 81.2 fL (83.0-100.0); Mean Platelet Volume 10.2 fL (9.4-12.4); Monocytes # 0.1 K/mcL (0.0-1.3); Monocytes % 11.3 %; Red Blood Count 4.52 M/mcL (4.19-5.50); Red Cell Distribution Width 12.3 % (11.5-14.5); Segmented Neutrophils % 1.9 %
[2019-09-11 13:32] LABS: Lymphocytes # 0.4 K/mcL (0.6-4.6); Mean Corpuscular HGB Conc 37.3 g/dL (31.6-35.5); Platelet Count 47 K/mcL (140-400)
[2019-09-11 13:35] LABS: White Blood Count 0.5 K/mcL (4.3-11.1)
[2019-09-11 13:42] LABS: Alanine Aminotransferase 13 Units/L (7-52); Albumin/Globulin Ratio 1.5 (1.1-2.2); Alkaline Phosphatase 52 Units/L (34-104); Aspartate Amino Transferase 46 Units/L (13-39); BUN/Creatinine Ratio 25 (6-26); Bilirubin,Indirect 0.4 mg/dL (0.0-1.0); Bilirubin,Total 0.4 mg/dL (0.3-1.0); Blood Urea Nitrogen 23 mg/dL (6-20); Calcium 8.8 mg/dL (8.6-10.3); Carbon Dioxide 26 mEq/L (23-29); Chloride 103 mEq/L (98-107); Globulin 2.6 g/dL (2.4-3.5); Glucose 108 mg/dL (70-105); Osmolality,Calculated 290 (280-300); Potassium 3.8 mEq/L (3.5-5.1); Sodium 138 mEq/L (136-145); Total Protein 6.6 g/dL (6.4-8.9); eGFR For African Americans > 60 (> 60); eGFR For Non-African Americans > 60 (> 60)
[2019-09-11 14:04] LABS: Bilirubin,Urine Negative (Negative); Blood,Urine Negative (Negative); Clarity,Urine Clear (Clear); Color,Urine Yellow (Yellow); Glucose,Urine (UA) Normal (Normal); Ketones,Urine Negative (Negative); Leukocyte Esterase,Urine Negative (Negative); Nitrite,Urine Negative (Negative); Protein,Urine 30 mg/dL (Neg-Trace); Specific Gravity,Urine > 1.030 (1.010-1.025); Urobilinogen,Urine Normal (Normal)
[2019-09-11 14:12] LABS: Bacteria,Urine None Seen per hpf (None-Few); Hyaline Casts,Urine None Seen per lpf (None-Few); Squamous Epithelial Cell,Urine Moderate per lpf (None-Few); WBC,Urine 0-3 per hpf (0-3)
[2019-09-11 14:56] LABS: C-Reactive Protein 72 mg/L (Less than 10)
[2019-09-11] MEDS ORDERED: Naloxone 0.4 MG/ML INJ IVP PRN (16:16)
[2019-09-11] MEDS: Cefepime HCl 2,000 MG in 0.9 % Sodium Chloride Mini Bag 100 ML IVPB SCH ×2 (17:42→23:33)
[2019-09-11] MEDS: Nicotine 14 MG PATCH.TD24 TD SCH (18:05)
[2019-09-11] MEDS: 0.9 % Sodium Chloride 1,000 ML IVC SCH ×3 (18:34→23:33)
[2019-09-11] MEDS: hydrOXYzine pamoate 25 MG CAPSULE PO SCH (20:55)
[2019-09-11] MEDS ORDERED: 0.9 % Sodium Chloride 1,000 ML ONE (21:01)
[2019-09-11] MEDS ORDERED: Acetaminophen IV 1,000 MG/100 ML INFUS..BTL IVPB ONE (21:12)
[2019-09-11] MEDS ORDERED: Ibuprofen 600 MG TABLET PO ONE (21:59)
[2019-09-11] MEDS ORDERED: *HR* LORazepam 2 MG/ML VIAL IVP ONE (22:02)
[2019-09-12 04:52] LABS: Hematocrit 34.4 % (37.5-50.1); Hemoglobin 12.4 g/dL (12.9-16.9); Mean Corpuscular Hemoglobin 30.5 pg (28.0-33.3); Mean Corpuscular Volume 84.5 fL (83.0-100.0); Mean Platelet Volume 10.6 fL (9.4-12.4); Red Blood Count 4.07 M/mcL (4.19-5.50); Red Cell Distribution Width 12.2 % (11.5-14.5)
[2019-09-12 05:00] LABS: Platelet Count 50 K/mcL (140-400); White Blood Count 0.6 K/mcL (4.3-11.1)
[2019-09-12 05:10] LABS: BUN/Creatinine Ratio 18 (6-26); Blood Urea Nitrogen 17 mg/dL (6-20); Calcium 7.7 mg/dL (8.6-10.3); Carbon Dioxide 23 mEq/L (23-29); Chloride 106 mEq/L (98-107); Glucose 104 mg/dL (70-105); Magnesium 1.7 mg/dL (1.6-2.6); Osmolality,Calculated 284 (280-300); Sodium 136 mEq/L (136-145); eGFR For African Americans > 60 (> 60); eGFR For Non-African Americans > 60 (> 60)
[2019-09-12 07:17] LABS: Adenovirus Not Detected (Not Detect); Bordetella Pertussis Not Detected (Not Detect); Chlamydophila pneumoniae Not Detected (Not Detect); Coronavirus 229E Not Detected (Not Detect); Coronavirus HKU1 Not Detected (Not Detect); Coronavirus NL63 Not Detected (Not Detect); Coronavirus OC43 Not Detected (Not Detect); Human Metapneumovirus Not Detected (Not Detect); Human Rhinovirus/Enterovirus Not Detected (Not Detect); Influenza A Subtype 2009 H1 Not Detected (Not Detect); Influenza A Untypeable Not Detected (Not Detect); Influenza B Not Detected (Not Detect); Mycoplasma pneumoniae Not Detected (Not Detect); Parainfluenza Virus 1 Not Detected (Not Detect); Parainfluenza Virus 2 Not Detected (Not Detect); Parainfluenza Virus 3 Not Detected (Not Detect); Parainfluenza Virus 4 Not Detected (Not Detect); Respiratory Syncytial Virus Not Detected (Not Detect)
[2019-09-12] MEDS: Nicotine 14 MG PATCH.TD24 TD SCH (07:48)
[2019-09-12] MEDS: hydrOXYzine pamoate 25 MG CAPSULE PO SCH ×2 (07:48→16:11)
[2019-09-12] MEDS: Cefepime HCl 2,000 MG in 0.9 % Sodium Chloride Mini Bag 100 ML IVPB SCH (07:49)
[2019-09-12] MEDS ORDERED: Cefepime HCl 2,000 MG in 0.9 % Sodium Chloride Mini Bag 100 ML IVPB SCH ×2 (08:00→16:00)
[2019-09-12] MEDS: Acetaminophen 325 MG TABLET PO PRN ×2 (08:47→19:45)
[2019-09-12] MEDS ORDERED: Cholecalciferol (D-3) 1,000 UNIT (25MCG) TABLET PO SCH (09:00)
[2019-09-12] MEDS ORDERED: *HR* OxyCODONE/APAP 5/325 TABLET PO ONE (12:16)
[2019-09-12] MEDS ORDERED: Isovue-370 500 ML BOTTLE IVP ONE (15:09)
[2019-09-12] MEDS ORDERED: metroNIDAZOLE 500 MG TABLET PO SCH (15:15)
[2019-09-12 16:24] LABS: Procalcitonin 0.97 ng/mL (0.00-0.15)
[2019-09-12 17:22] LABS: Hepatitis B Surface Antibody < 3.10 mIU/mL
[2019-09-12 17:32] LABS: Hepatitis B Surface Antigen Nonreactive (Nonreactive)
[2019-09-12 18:04] LABS: HIV-1&2 Antibody & p24 Ag Nonreactive (Nonreactive)
[2019-09-12 19:30] VITALS: BP 161/93
[2019-09-12] MEDS ORDERED: Aminoglycoside Consult 1 EACH MC ONE (19:59)
[2019-09-12 20:03] LABS: Hepatitis C Virus Antibody Reactive (Nonreactive)
== END 2019-09-12 20:00 | disposition critical access hospital (66) ==
LOC: 2ANU 12:27 → EMEROOARM 12:27 → SUATTDRO 16:16 → 2ANU 16:34
PROVIDERS: ADMIT Internal Medicine; ATTEND Student in an Organized Health Care Education/Training Program